=== PATIENT | female | born 1955 | race Caucasian/White ===

== ENCOUNTER 2016-11-29 20:54 | Emergency (ER) | payer MEDICARE, MEDICAID ==
[2016-11-30] MEDS ORDERED: LIDOCAINE 5% (700 MG) TRANSDERMAL ADH..PATCH TP ONE (00:45)
[2016-11-30] MEDS ORDERED: ACETAMINOPHEN 325 MG TABLET PO ONE (00:45)
--- NOTE | 2016-11-30 01:22 | ER Document Report ---
ED General - General Chief Complaint: Back Pain Stated Complaint: FLANK PAIN Time Seen by Provider: 11/30/16 00:06 Notes: Patient is a 61-year-old female with a past medical history of hypertension, diabetes, chronic right leg and back pain who presents with 3 weeks of constant right low back pain. States that the pain as a constant, throbbing, aching pain to the right low back. Worsened by movement and walking. She has been taking hydrocodone with acetaminophen with moderate relief of her pain. She has been to an urgent care regarding this concern was diagnosed with possible sciatica. She denies any urinary retention. No bowel incontinence. Patient states she has urinary incontinence at baseline and that this is unchanged today. She denies any difficulty with ambulating, focal weakness or numbness. No fever or constitutional symptoms. Nothing is new or different regarding her pain today that prompted her come to the emergency department other than that she has run out of pain medications. TRAVEL OUTSIDE OF THE [place] IN LAST 30 DAYS: No - Related Data Allergies/Adverse Reactions: morphine Allergy (Mild, Verified 11/29/16 21:09) Past Medical History - General Information source: Patient - Social History Smoking Status: Never Smoker Frequency of alcohol use: None Drug Abuse: None Lives with: Family Family History: Reviewed & Not Pertinent - Past Medical History Cardiac Medical History: Reports: Hx Hypertension Endocrine Medical History: Reports: Hx Diabetes Mellitus Type 2 Renal/ Medical History: Denies: Hx Peritoneal Dialysis Psychiatric Medical History: Reports: Hx Anxiety, Hx Depression Infectious Medical History: Reports: Hx C-Diff Past Surgical History: Reports: Hx Appendectomy, Hx Hysterectomy - Immunizations Hx Diphtheria, Pertussis, Tetanus Vaccination: Yes Review of Systems - Review of Systems Notes: Constitutional: Negative for fever. HENT: Negative for sore throat. Eyes: Negative for visual changes. Cardiovascular: Negative for chest pain. Respiratory: Negative for shortness of breath. Gastrointestinal: Negative for abdominal pain, vomiting or diarrhea. Genitourinary: Negative for dysuria. Musculoskeletal: Positive for back pain. Skin: Negative for rash. Neurological: Negative for headaches, weakness or numbness. 10 point ROS negative except as marked above and in HPI. Physical Exam - Vital signs Interpretation: Hypertensive Notes: PHYSICAL EXAMINATION: GENERAL: Well-appearing, well-nourished and in no acute distress. HEAD: Atraumatic, normocephalic. EYES: Pupils equal round and reactive to light, extraocular movements intact, sclera anicteric, conjunctiva are normal. ENT: nares patent, oropharynx clear without exudates. Moist mucous membranes. NECK: Normal range of motion, supple without lymphadenopathy LUNGS: Breath sounds clear to auscultation bilaterally and equal. No wheezes rales or rhonchi. HEART: Regular rate and rhythm without murmurs ABDOMEN: Soft, nontender, normoactive bowel sounds. No guarding, no rebound. No masses appreciated. Back: No midline spinal tenderness, step-offs or deformities. There is pain on palpation of the right parathoracic and lumbar spinal muscles. EXTREMITIES: Normal range of motion, no pitting or edema. No cyanosis. NEUROLOGICAL: 5 out of 5 strength both distally and proximally bilateral lower extremities. 2+ patellar reflexes bilaterally. No clonus. Sensation grossly intact in the bilateral lower extremities. Patient is able to ambulate without difficulty. PSYCH: Normal mood, normal affect. SKIN: Warm, Dry, normal turgor, no rashes or lesions noted. Course - Re-evaluation Re-evalutation: 11/30/16 01:22 Presentation of a well appearing patient complaining of acute on chronic back pain. No rapid progression of symptoms, systemic symptoms including fevers, chills, weight loss, history of recent bacterial infection, bilateral symptoms, numbness, weakness, difficulty walking, urinary retention or bowel incontinence , personal history of cancer, immunosuppression, diabetes, known AAA, or history of IV drug use. Exam is without point tenderness over vertebral bodies , pulsatile abdominal mass, and patient has symmetric and intact lower extremity strength, sensation, and reflexes without clonus. 2+ symmetric medial malleolar and dorsalis pedis pulses Based on history and physical, I have a very low suspicion of a concerning etiology of pain including epidural compression syndrome, spinal infection, transverse myelitis, malignancy, abdominal aortic aneurysm, renal colic, acute lower extremity claudication, neurogenic claudication, ankylosing spondylitis, or other intra-abdominal process. Due to absence of concerning risk factors in history and physical as well as absence of rapidly progressive, severe, or bilateral symptoms, will defer imaging at this point. Plan to manage conservatively with outpatient analgesia, analgesia, and physical therapy. - Acetaminophen 650 q 4 + ibuprofen 600 q 6 - Continue normal daily activities as tolerated by pain - Provide with standard musculoskeletal back pain exercise instructions - Instruct to follow up with primary care provider if symptoms not improving - Provide careful return precautions and concerning symptoms to watch for. - Laboratory Laboratory results interpreted by me: 11/30/16 00:53 Urine Urobilinogen 2.0 H Ur Leukocyte Esterase TRACE H Discharge - Discharge Clinical Impression: Low back pain Qualifiers: Chronicity: acute Back pain laterality: right Sciatica presence: with sciatica Sciatica laterality: sciatica of right side Qualified Code(s): M54.41 - Lumbago with sciatica, right side Condition: Good Disposition: HOME, SELF-CARE Additional Instructions: You have been seen in the Emergency Department (ED) today for back pain. Your workup and exam have not shown any acute abnormalities and you are likely suffering from muscle strain or possible problems with your discs, but there is no treatment that will fix your symptoms at this time. Please take the ketorolac that has been prescribed as directed. You should also purchase a local lidocaine cream such as "aspercreme with lidocaine" and use per bottle instructions to the affected area. Apply heat to the area as often as you are able. Continue to keep active and avoid prolonged periods of bed rest. Please follow up with your doctor as soon as possible regarding today's ED visit and your back pain. Return to the ED for worsening back pain, fever, weakness or numbness of either leg, or if you develop either (1) an inability to urinate or have bowel movements, or (2) loss of your ability to control your bathroom functions (if you start having "accidents"), or if you develop other new symptoms that concern you.concern you. Prescriptions: Ketorolac Tromethamine [Toradol 10 mg Tablet] 10 mg PO Q6HP PRN #30 tablet PRN Reason:
[2016-11-30 01:29] LABS: AMORPHOUS SEDIMENT,URINE TRACE /HPF; APPEARANCE,URINE SLIGHTLY-CLOUDY; BILIRUBIN,URINE NEGATIVE (NEGATIVE); GLUCOSE, URINE NEGATIVE (NEGATIVE); KETONES,URINE NEGATIVE (NEGATIVE); LEUKOCYTE ESTERASE,URINE TRACE (NEGATIVE); NITRITE,URINE NEGATIVE (NEGATIVE); PROTEIN,URINE NEGATIVE (NEGATIVE); URINE SPECIFIC GRAVITY 1.027
[2016-11-30 02:18] VITALS: BP 154/74
== END 2016-11-30 01:50 | disposition home or self-care (01) ==
LOC: ER 20:54
DX: M54.41 Lumbago with sciatica, right side (principal); M54.5 Low back pain; M54.9 Dorsalgia, unspecified; M79.604 Pain in right leg; G89.29 Other chronic pain; R10.9 Unspecified abdominal pain; I10 Essential (primary) hypertension; E11.9 Type 2 diabetes mellitus without complications
CPT/HCPCS: 99283; 81001; A9270

== ENCOUNTER 2016-12-06 15:34 | Emergency (ER) | payer MEDICAID, MEDICARE ==
[2016-12-06] MEDS ORDERED: ONDANSETRON 4 MG TAB.RAPDIS SL ONE (16:37)
[2016-12-06] MEDS ORDERED: HYDROCODONE/ACETAMINOPHEN 5-325 MG TABLET PO ONE (16:37)
--- NOTE | 2016-12-06 16:38 | ER Document Report ---
ED Medical Screen (RME) - General Chief Complaint: Flank Pain Stated Complaint: PAIN IN RIGHT SIDE Time Seen by Provider: 12/06/16 16:37 Mode of Arrival: Wheelchair Information source: Patient TRAVEL OUTSIDE OF THE U.S. IN LAST 30 DAYS: No - HPI Patient complains to provider of: Right flank pain, dysuria Notes: 12/06/16 16:38 Patient is a 61-year-old female presenting to the emergency room complaining of one-week history of right flank pain with dysuria and urinary frequency, she also had 3 episodes of vomiting today - Related Data Allergies/Adverse Reactions: morphine Allergy (Mild, Verified 11/29/16 21:09) Past Medical History - Past Medical History Cardiac Medical History: Reports: Hx Hypertension Endocrine Medical History: Reports: Hx Diabetes Mellitus Type 2 Renal/ Medical History: Denies: Hx Peritoneal Dialysis Psychiatric Medical History: Reports: Hx Anxiety, Hx Depression Infectious Medical History: Reports: Hx C-Diff Past Surgical History: Reports: Hx Appendectomy, Hx Hysterectomy - Immunizations Hx Diphtheria, Pertussis, Tetanus Vaccination: Yes Physical Exam - Vital signs Vitals: Temp Pulse Resp BP Pulse Ox 98.4 F 98 16 156/104 H 93 12/06/16 16:04 12/06/16 16:04 12/06/16 16:04 12/06/16 16:04 12/06/16 16:04 Course - Vital Signs Vital signs: Temp Pulse Resp BP Pulse Ox 98.4 F 98 16 156/104 H 93 12/06/16 16:04 12/06/16 16:04 12/06/16 16:04 12/06/16 16:04 12/06/16 16:04
[2016-12-06 17:44] LABS: ABSOLUTE BASOPHILS # (AUTO) 0.1 10^3/uL (0.0-0.2); ABSOLUTE EOSINOPHILS # (AUTO) 0.1 10^3/uL (0.0-0.6); ABSOLUTE LYMPHOCYTES (AUTO) 1.3 10^3/uL (0.5-4.7); ABSOLUTE MONOCYTES (AUTO) 0.5 10^3/uL (0.1-1.4); ABSOLUTE NEUT (AUTO) 7.1 10^3/uL (1.7-8.2); BASOPHILS % (AUTO) 0.9 % (0-2); EOSINOPHILS % (AUTO) 0.6 % (0-6); HEMOGLOBIN 19.4 g/dL (12.0-15.5); HGB HCT DIFFERENCE 1.5; LYMPHOCYTES % (AUTO) 13.9 % (13-45); MEAN CORPUSCULAR HEMOGLOBIN 29.1 pg (27.0-33.4); MEAN CORPUSCULAR HGB CONC 34.3 g/dL (32.0-36.0); MEAN CORPUSCULAR VOLUME 85 fl (80-97); MONOCYTES % (AUTO) 5.9 % (3-13); RED BLOOD COUNT 6.68 10^6/uL (3.72-5.28); RED CELL DISTRIBUTION WIDTH 14.9 % (11.5-14.0); SEGMENTED NEUTROPHILS % (AUTO) 78.7 % (42-78); WHITE BLOOD COUNT 9.1 10^3/uL (4.0-10.5)
[2016-12-06 17:45] LABS: HEMATOCRIT 56.7 % (36.0-47.0)
[2016-12-06 17:54] LABS: APPEARANCE,URINE SLIGHTLY-CLOUDY; BILIRUBIN,URINE NEGATIVE (NEGATIVE); GLUCOSE, URINE NEGATIVE (NEGATIVE); KETONES,URINE 20 mg/dL (NEGATIVE); LEUKOCYTE ESTERASE,URINE NEGATIVE (NEGATIVE); NITRITE,URINE NEGATIVE (NEGATIVE); PROTEIN,URINE NEGATIVE (NEGATIVE); URINE SPECIFIC GRAVITY 1.012; UROBILINOGEN,URINE NEGATIVE mg/dL (<2.0)
[2016-12-06 18:04] LABS: ALANINE AMINOTRANSFERASE 23 U/L (9-52); ALBUMIN 4.4 g/dL (3.5-5.0); ALKALINE PHOSPHATASE 111 U/L (38-126); ANION GAP 15 (5-19); ASPARTATE AMINO TRANSFERASE 21 U/L (14-36); BILIRUBIN,DIRECT 0.5 mg/dL (0.0-0.4); BILIRUBIN,TOTAL 1.1 mg/dL (0.2-1.3); BLOOD UREA NITROGEN 11 mg/dL (7-20); CALCIUM 9.9 mg/dL (8.4-10.2); CARBON DIOXIDE 26 mmol/L (22-30); CHLORIDE 99 mmol/L (98-107); CREATININE RESULT 0.73 mg/dL (0.52-1.25); GLUCOSE 170 mg/dL (75-110); LIPASE 68.1 U/L (23-300); POTASSIUM 3.8 mmol/L (3.6-5.0); SODIUM 139.6 mmol/L (137-145); TOTAL PROTEIN 7.6 g/dL (6.3-8.2)
[2016-12-06] MEDS ORDERED: PHENAZOPYRIDINE HCL 200 MG TABLET PO ONE (18:48)
--- NOTE | 2016-12-06 18:50 | ER Document Report ---
ED GI/ - General Mode of Arrival: Wheelchair Information source: Patient TRAVEL OUTSIDE OF THE [place] IN LAST 30 DAYS: No - HPI Patient complains to provider of: Abdominal pain, Dysuria, Flank pain, Vaginal pain, Vomiting <MARISSA LOVE - Last Filed: 12/06/16 20:25> <CECILIAFABIANGIE - Last Filed: 12/06/16 23:42> - General Chief Complaint: Flank Pain Stated Complaint: PAIN IN RIGHT SIDE Time Seen by Provider: 12/06/16 16:37 Notes: Patient is a 61 year old female presenting to the emergency department for right flank pain and dysuria. Patient states she has had pain in her right side x1 week. Patient states she had dysuria and urinary frequency x2 days. Patient describes her dysuria as burning and pressure in her urethra. Patient also had some vomiting x3 today and has also had a lack of appetite and nausea. Patient states she has been dizzy today and felt like she was going to pass out; she states this is probably due to her not eating. Patient did have an episode of syncope this morning around 3:00 am and she states her son in law had to pick her up off the floor. Patient was getting up to go to the bathroom when she fell. Patient states she does not remember falling but she thinks she was down for about 4-5 minutes. Patient does not have a local PCP since she recently moved back to this area. Patient has a history of diabetes mellitus, hypertension, anxiety and depression. Patient has had a hysterectomy and an appendectomy. (MARISSA LOVE) - Related Data Allergies/Adverse Reactions: morphine Allergy (Mild, Verified 11/29/16 21:09) Past Medical History - General Information source: Patient - Social History Smoking Status: Current Every Day Smoker Cigarette use (# per day): Yes Chew tobacco use (# tins/day): No Smoking Education Provided: Yes - >5 minutes Frequency of alcohol use: None Drug Abuse: None Family History: None Patient has suicidal ideation: No Patient has homicidal ideation: No - Past Medical History Cardiac Medical History: Reports: Hx Hypertension Endocrine Medical History: Reports: Hx Diabetes Mellitus Type 2 Psychiatric Medical History: Reports: Hx Anxiety, Hx Depression Infectious Medical History: Reports: Hx C-Diff Past Surgical History: Reports: Hx Appendectomy, Hx Hysterectomy, Hx Orthopedic Surgery - right knee - Immunizations Hx Diphtheria, Pertussis, Tetanus Vaccination: Yes <MARISSA LOVE - Last Filed: 12/06/16 20:25> Review of Systems - Review of Systems Constitutional: No symptoms reported. denies: Fever EENT: No symptoms reported Cardiovascular: No symptoms reported Respiratory: No symptoms reported Gastrointestinal: See HPI, Nausea, Vomiting, Poor appetite. denies: Diarrhea Genitourinary: See HPI, Burning, Dysuria, Frequency, Flank pain. denies: Incontinence Female Genitourinary: See HPI, Other Musculoskeletal: See HPI, Back pain Skin: No symptoms reported Hematologic/Lymphatic: No symptoms reported Neurological/Psychological: Numbness -: Yes All other systems reviewed and negative <MARISSA LOVE - Last Filed: 12/06/16 20:25> Physical Exam - Vital signs Interpretation: Hypertensive <MARISSA LOVE - Last Filed: 12/06/16 20:25> <ANGIE VIEIRA - Last Filed: 12/06/16 23:42> - Vital signs Vitals: Temp Pulse Resp BP Pulse Ox 98.4 F 98 16 156/104 H 93 12/06/16 16:04 12/06/16 16:04 12/06/16 16:04 12/06/16 16:04 12/06/16 16:04 - Notes Notes: GENERAL: Alert, interacts well. Appears uncomfortable. Mild distress. HEAD: Normocephalic, atraumatic. EYES: Pupils equal, round, and reactive to light. Extraocular movements intact. ENT: Oral mucosa moist, tongue midline. NECK: Full range of motion. Supple. Trachea midline. LUNGS: Diffuse inspiratory rhonchi and expiratory wheezing in the left lower lobe, both are relieved with cough. No respiratory distress. HEART: Regular rate and rhythm. No murmurs, gallops, or rubs. ABDOMEN: Right lateral abdominal tenderness with palpation. Non-distended. Bowel sounds present in all 4 quadrants. GENITOURINARY: Left and right adnexal tenderness to palpation, pain is exacerbated with movement. EXTREMITIES: Moves all 4 extremities spontaneously. No edema. No cyanosis. BACK: No CVA tenderness to percussion. No midline bony tenderness with palpation. Left patellar DTR 2+, right patellar DTR not able to test due to post surgical changes and stiffness. No saddle anesthesia. 5/5 muscle strength to the lower extremities. NEUROLOGICAL: Alert and oriented x3. Normal speech. PSYCH: Normal affect, normal mood. SKIN: Warm, dry, normal turgor. No rashes or lesions noted. (MARISSA LOVE) Course - Laboratory Result Diagrams: 12/06/16 17:20 12/06/16 17:20 <MARISSA LOVE - Last Filed: 12/06/16 20:25> - Laboratory Result Diagrams: 12/06/16 17:20 12/06/16 17:20 <ANGIE VIEIRA - Last Filed: 12/06/16 23:42> - Re-evaluation Re-evalutation: 12/06/16 22:12 CBC shows hemoconcentration, no leukocytosis, CMP shows slightly elevated glucose at 170, shows 20 ketones but no blood and no true signs of infection, wet prep shows 3+ bacteria, no trichomonas, no yeast, gonorrhea and chlamydia are negative, CT scan of the abdomen and pelvis shows mild early uncomplicated diverticulitis. This was treated orally with Augmentin, no indication for IV antibiotics. Discharged home. (ANGIE VIEIRA) - Vital Signs Vital signs: Temp Pulse Resp BP Pulse Ox 98.2 F 59 L 16 169/55 H 93 12/06/16 22:22 12/06/16 22:22 12/06/16 16:04 12/06/16 22:22 12/06/16 16:04 - Laboratory Laboratory results interpreted by me: 12/06/16 12/06/16 12/06/16 17:20 17:20 17:20 RBC 6.68 H Hgb 19.4 H Hct 56.7 H RDW 14.9 H Seg Neutrophils % 78.7 H Glucose 170 H Direct Bilirubin 0.5 H Urine Ketones 20 H Discharge <MARISSA LOVE - Last Filed: 12/06/16 20:25> <ANGIE VIEIRA - Last Filed: 12/06/16 23:42> - Discharge Clinical Impression: Tobacco abuse, Tobacco abuse counseling Diverticulitis Qualifiers: Diverticulitis site: large intestine Diverticulitis bleeding: without bleeding Diverticulitis complication: without perforation or abscess Qualified Code(s): K57.32 - Diverticulitis of large intestine without perforation or abscess without bleeding Hypertension Qualifiers: Hypertension type: essential hypertension Qualified Code(s): I10 - Essential ( primary) hypertension Condition: Stable Disposition: HOME, SELF-CARE Instructions: Diverticulitis ([facility]) Prescriptions: Amox Tr/Potassium Clavulanate [Augmentin 875-125 Tablet] 1 tab PO BID 10 Days tablet Referrals: MUSHTAQ GARCIA MD [ACTIVE STAFF] - Follow up in 3-5 days Scribe Attestation: 12/06/16 23:42 I personally performed the services described in the documentation, reviewed and edited the documentation which was dictated to the scribe in my presence, and it accurately records my words and actions. (ANGIE VIEIRA) Scribe Documentation - Scribe Written by Gisela:: Gisela John 12/06/20161951 acting as scribe for :: Michelet <MARISSA LOVE - Last Filed: 12/06/16 20:25>
[2016-12-06 21:01] LABS: CHLAM PCR NOT DETECTED (NOT DETECT)
--- NOTE | 2016-12-06 21:10 | RADIOLOGY REPORT (SQ) ---
EXAM DESCRIPTION: CT ABD/PELVIS WITH IV ONLY COMPLETED DATE/TIME: 12/06/2016 8:52 pm REASON FOR STUDY: B/L lower abd TTP, nausea COMPARISON: 12/07/2015 TECHNIQUE: CT scan of the abdomen and pelvis performed using helical scanning technique with dynamic intravenous contrast injection. No oral contrast. Images reviewed with lung, soft tissue, and bone windows. Reconstructed coronal and sagittal MPR images reviewed. Delayed images for evaluation of the urinary system also acquired. All images stored on PACS. All CT scanners at this facility use dose modulation, iterative reconstruction, and/or weight based d osing when appropriate to reduce radiation dose to as low as reasonably achievable (ALARA). [facility]: Dose Right [facility]: CareDose [facility]: Dose Right [facility]: Teradose 4D [facility]: Spherical Systems CONTRAST TYPE AND DOSE: contrast/concentration: Isovue 370.00 mg/ml; Total Contrast Delivered: 100.0 ml; Total Saline Delivered: 64.9 ml RENAL FUNCTION: BUN 11; creatinine 0.73 RADIATION DOSE: Up-to-date CT equipment and radiation dose reduction techniques were employed. CTDIv ol: 19.6 - 21.1 mGy. DLP: 1981 mGy-cm.. LIMITATIONS: None. FINDINGS: LOWER CHEST: Stable lingular scarring. No significant findings. No nodules or infiltrates . LIVER: Normal size. No masses. No dilated ducts. SPLEEN: Normal size. No focal lesions. PANCREAS: No masses. No significant calcifications. No adjacent inflammation or peripancreatic fluid collections. Pancreatic duct not dilated. GALLBLADDER: Surgically absent. ADRENAL GLANDS: Stable left adrenal nodule. RIGHT KIDNEY AND URETER: No solid masses. No significant calcifications. No hydronephrosis or hyd roureter. LEFT KIDNEY AND URETER: No solid masses. No significant calcifications. No hydronephrosis or hydr oureter. AORTA AND VESSELS: No aneurysm. No dissection. Renal arteries, SMA, celiac without stenosis. RETROPERITONEUM: No retroperitoneal adenopathy, hemorrhage or masses. BOWEL AND PERITONEAL CAVITY: Re- demonstration of diverticular disease. Subtle mesenteric fat strand ing seen adjacent to the sigmoid colon. No focal fluid collection or pneumoperitoneum is demonstrate d. APPENDIX: Surgically absent. PELVIS: No mass. No free fluid. Normal bladder. ABDOMINAL WALL: No masses. No hernias. BONES: No significant or acute findings. OTHER: No other significant finding. IMPRESSION: Given patient-reported lower abdominal pain, subtle inflammatory changes seen adjacent t o the sigmoid colon are favored to represent early uncomplicated diverticulitis. TECHNICAL DOCUMENTATION: JOB ID: [id number] Quality ID # [id number]: Final reports with documentation of one or more dose reduction techniques (e.g., Au tomated exposure control, adjustment of the mA and/or kV according to patient size, use of iterative reconstruction technique) 2010 [employer]- All Rights Reserved
[2016-12-06] MEDS ORDERED: AMOXICILLIN TR/POT CLAVULANATE 500-125 MG TAB PO ONE (21:42)
[2016-12-06 22:26] VITALS: BP 169/55
== END 2016-12-06 22:25 | disposition home or self-care (01) ==
LOC: ER 15:34
DX: K57.32 Diverticulitis of large intestine without perforation or abscess without bleeding (principal); I10 Essential (primary) hypertension; R10.9 Unspecified abdominal pain; R30.0 Dysuria; R35.0 Frequency of micturition; R42 Dizziness and giddiness; E11.9 Type 2 diabetes mellitus without complications; F32.9 Major depressive disorder, single episode, unspecified; F17.210 Nicotine dependence, cigarettes, uncomplicated; W19.XXXA Unspecified fall, initial encounter
CPT/HCPCS: 99284; 36415; 87086; 87210; 83690; 85025; 80053; 81001; 87491; 87591; 74177; A9270 ×4; J3490; S0119

== ENCOUNTER 2017-01-20 14:06 | Emergency (ER) | payer MEDICARE ==
[2017-01-20 14:25] LABS: ABSOLUTE BASOPHILS # (AUTO) 0.1 10^3/uL (0.0-0.2); ABSOLUTE EOSINOPHILS # (AUTO) 0.1 10^3/uL (0.0-0.6); ABSOLUTE LYMPHOCYTES (AUTO) 1.1 10^3/uL (0.5-4.7); ABSOLUTE MONOCYTES (AUTO) 0.5 10^3/uL (0.1-1.4); ABSOLUTE NEUT (AUTO) 7.7 10^3/uL (1.7-8.2); EOSINOPHILS % (AUTO) 0.7 % (0-6); HEMATOCRIT 51.9 % (36.0-47.0); HGB HCT DIFFERENCE 2.1; LYMPHOCYTES % (AUTO) 11.9 % (13-45); MEAN CORPUSCULAR HEMOGLOBIN 29.2 pg (27.0-33.4); MEAN CORPUSCULAR HGB CONC 34.7 g/dL (32.0-36.0); MEAN CORPUSCULAR VOLUME 84 fl (80-97); MONOCYTES % (AUTO) 5.7 % (3-13); RED BLOOD COUNT 6.16 10^6/uL (3.72-5.28); SEGMENTED NEUTROPHILS % (AUTO) 80.7 % (42-78); WHITE BLOOD COUNT 9.6 10^3/uL (4.0-10.5)
[2017-01-20] MEDS ORDERED: NORMAL SALINE 1000 ML 1,000 ML IV ONE (15:09)
[2017-01-20] MEDS ORDERED: AMLODIPINE BESYLATE 10 MG TABLET PO ONE (15:09)
[2017-01-20 15:32] LABS: ALANINE AMINOTRANSFERASE 42 U/L (9-52); ALBUMIN 4.2 g/dL (3.5-5.0); ALKALINE PHOSPHATASE 92 U/L (38-126); ANION GAP 11 (5-19); ASPARTATE AMINO TRANSFERASE 21 U/L (14-36); BILIRUBIN,DIRECT 0.6 mg/dL (0.0-0.4); BLOOD UREA NITROGEN 13 mg/dL (7-20); CALCIUM 9.6 mg/dL (8.4-10.2); CARBON DIOXIDE 27 mmol/L (22-30); CHLORIDE 98 mmol/L (98-107); CREATININE RESULT 0.66 mg/dL (0.52-1.25); GLUCOSE 314 mg/dL (75-110); POTASSIUM 4.1 mmol/L (3.6-5.0); SODIUM 136.3 mmol/L (137-145)
[2017-01-20 15:32] LABS: APPEARANCE,URINE SLIGHTLY-CLOUDY; BILIRUBIN,URINE NEGATIVE (NEGATIVE); GLUCOSE, URINE >=500 mg/dL (NEGATIVE); KETONES,URINE TRACE mg/dL (NEGATIVE); LEUKOCYTE ESTERASE,URINE NEGATIVE (NEGATIVE); NITRITE,URINE NEGATIVE (NEGATIVE); PROTEIN,URINE NEGATIVE (NEGATIVE); URINE SPECIFIC GRAVITY 1.012; UROBILINOGEN,URINE NEGATIVE mg/dL (<2.0)
--- NOTE | 2017-01-20 17:12 | ER Document Report ---
ED General - General Chief Complaint: Vomiting Stated Complaint: BLOOD SUGAR/PRESSURE ISSUES Time Seen by Provider: 01/20/17 14:49 Mode of Arrival: Medic Information source: Patient TRAVEL OUTSIDE OF THE [place] IN LAST 30 DAYS: No - HPI Patient complains to provider of: Out of my meds for 3 weeks Quality of pain: No pain Associated symptoms: None Exacerbated by: Denies Similar symptoms previously: Yes Recently seen / treated by doctor: No Notes: Presents emergency department stating that she does not have her Medicaid card. She moved from [place] to [place] 1 year ago and has never received it. Out it she is unable to go get her medications. - Related Data Allergies/Adverse Reactions: morphine Adverse Reaction (Mild, Verified 12/14/16 11:36) Home Medications: Current Home Medications Bupropion HCl [Bupropion Xl] 300 mg PO QAM 01/20/17 [History] Clonazepam 0.5 mg PO BID 01/20/17 [History] Metformin HCl [Metformin HCl ER] 500 mg PO DAILY 01/20/17 [History] Past Medical History - General Information source: Patient - Social History Smoking Status: Former Smoker Chew tobacco use (# tins/day): No Frequency of alcohol use: None Drug Abuse: None Family History: None, Reviewed & Not Pertinent Patient has suicidal ideation: No Patient has homicidal ideation: No - Past Medical History Cardiac Medical History: Reports: Hx Hypertension Pulmonary Medical History: Reports: Hx COPD Endocrine Medical History: Reports: Hx Diabetes Mellitus Type 2 Renal/ Medical History: Reports: None. Denies: Hx Peritoneal Dialysis Malignancy Medical History: Reports: None GI Medical History: Reports: None Musculoskeltal Medical History: Reports None Psychiatric Medical History: Reports: Hx Anxiety, Hx Depression Infectious Medical History: Reports: Hx C-Diff Past Surgical History: Reports: Hx Appendectomy, Hx Cholecystectomy, Hx Hysterectomy, Hx Orthopedic Surgery - right knee - Immunizations Immunizations up to date: No Hx Diphtheria, Pertussis, Tetanus Vaccination: Yes History of Influenza Vaccine for 11/2016 - 04/2017 Season: No Review of Systems - Review of Systems Constitutional: No symptoms reported EENT: Other - Pressure behind her eyes. denies: Eye discharge, Blurred vision, Double vision Cardiovascular: No symptoms reported Respiratory: No symptoms reported Gastrointestinal: No symptoms reported Genitourinary: No symptoms reported Female Genitourinary: No symptoms reported Musculoskeletal: No symptoms reported Skin: No symptoms reported Hematologic/Lymphatic: No symptoms reported Neurological/Psychological: No symptoms reported Physical Exam - Vital signs Vitals: Resp Pulse Ox 20 95 01/20/17 14:16 01/20/17 14:16 Interpretation: Hypertensive - Notes Notes: PHYSICAL EXAMINATION: GENERAL: Well-appearing, well-nourished and in no acute distress. HEAD: Atraumatic, normocephalic. EYES: Pupils equal round and reactive to light, extraocular movements intact, conjunctiva are normal. ENT: Nares patent, oropharynx clear without exudates. Moist mucous membranes. NECK: Normal range of motion, supple without lymphadenopathy LUNGS: Breath sounds clear to auscultation bilaterally and equal. No wheezes rales or rhonchi. HEART: Regular rate and rhythm ABDOMEN: Soft, nontender, nondistended abdomen. No guarding, no rebound. No masses appreciated. Female : deferred Musculoskeletal: Normal range of motion, no pitting or edema. No cyanosis. NEUROLOGICAL: Cranial nerves grossly intact. Normal speech, normal gait. Normal sensory, motor exams PSYCH: Normal mood, normal affect. SKIN: Warm, Dry, normal turgor, no rashes or lesions noted. Course - Re-evaluation Re-evalutation: 01/20/17 23:09 Destin the disability case manager went and talked to the patient multiple times, on 1 of those occasions I did go in with Destin. She did have prescriptions filled in January for metformin as well as Octra. She states [facility] and she was discharged with prescriptions and did have those filled. Have a clinic that she goes to we encouraged her to return there. Also got her Medicaid number as well as information on her card and gave it to her so she should not have any difficulty filling her prescriptions. Sugar came down nicely with IV fluids and her blood pressure came down with Norvasc. Discharged home in stable condition with prescriptions for metformin as well as Norvasc. - Vital Signs Vital signs: Temp Pulse Resp BP Pulse Ox 24 H 157/84 H 93 01/20/17 17:01 01/20/17 17:01 01/20/17 17:01 - Laboratory Result Diagrams: 01/20/17 14:15 01/20/17 15:01 Laboratory results interpreted by me: 01/20/17 01/20/17 01/20/17 14:15 15:01 15:15 RBC 6.16 H Hgb 18.0 H Hct 51.9 H Seg Neutrophils % 80.7 H Lymphocytes % 11.9 L Sodium 136.3 L Glucose 314 H Direct Bilirubin 0.6 H Urine Glucose (UA) >=500 H Urine Ketones TRACE H Discharge - Discharge Clinical Impression: Noncompliance w/medication treatment due to intermit use of medication, Uncontrolled diabetes mellitus, High blood pressure Condition: Stable Disposition: HOME, SELF-CARE Additional Instructions: Please call the [facility] where you have been cared for in the past for follow-up appointment. Please call tomorrow. Your Medicare card information and number have been given to see should not have a problem getting her prescriptions filled. He is taking her medications as prescribed it is very important to control your blood sugar as well as her blood pressure. Prescriptions: Amlodipine Besylate [Norvasc 10 mg Tablet] 10 mg PO DAILY #30 tablet Metformin HCl [Glucophage 500 mg Tablet] 500 mg PO BID #60 tablet
[2017-01-20 17:26] VITALS: BP 157/84
== END 2017-01-20 17:01 | disposition home or self-care (01) ==
LOC: ER 14:06
DX: I10 Essential (primary) hypertension (principal); E11.9 Type 2 diabetes mellitus without complications; Z91.14 Patient's other noncompliance with medication regimen; Z87.891 Personal history of nicotine dependence; R11.10 Vomiting, unspecified; J44.9 Chronic obstructive pulmonary disease, unspecified; Z90.49 Acquired absence of other specified parts of digestive tract; Z90.710 Acquired absence of both cervix and uterus
CPT/HCPCS: 99284; 96360; 36415; 82962; 85025; 80053; 81001; J7030; A9270

== ENCOUNTER 2017-07-01 09:47 | Inpatient (IN) | payer MEDICARE ==
[2017-07-01] MEDS ORDERED: NORMAL SALINE 1000 ML 1,000 ML IV ONE ×2 (10:00→14:27)
[2017-07-01] MEDS ORDERED: NALOXONE HCL INJ 2 MG/2 ML DISP.SYRIN ONE (10:06)
--- NOTE | 2017-07-01 10:12 | ER Document Report ---
ED General - General Stated Complaint: ALTERED MENTAL STATUS Time Seen by Provider: 07/01/17 09:59 Mode of Arrival: Medic Information source: Patient, Emergency Med Personnel, [facility] Records Notes: Patient is a 62-year-old female with past medical history including diabetes and major depression who presents today with EMS. EMS states that the family called secondary to the patient having vomiting with some decreased mental status. Patient supposedly has been "unwell" according to EMS for the last 2-3 days with some vomiting. Family were very poor historians. Patient supposedly has not been taking her medications in greater than 3 3 weeks. This includes diabetic medications, blood pressure medications, including possibly insulin according to EMS. Patient is able to give only limited history. She does know where she is. She is slightly somnolent but easily arousable. She denies any pain. She does state she is nauseous. Patient states she has drank alcohol and has used heroin. She denies any cocaine abuse. TRAVEL OUTSIDE OF THE [place] IN LAST 30 DAYS: No - HPI Onset: Other - See above Onset/Duration: Gradual Quality of pain: Other - See above Severity: Moderate Pain Level: 3 Associated symptoms: Other - See above Exacerbated by: Denies Relieved by: Denies Similar symptoms previously: Yes Recently seen / treated by doctor: Yes - Related Data Allergies/Adverse Reactions: latex Allergy (Verified 07/01/17 13:43) morphine Adverse Reaction (Mild, Verified 07/01/17 13:43) Past Medical History - Social History Smoking Status: Unknown if Ever Smoked Cigarette use (# per day): No Chew tobacco use (# tins/day): No Smoking Education Provided: No Frequency of alcohol use: Unknown Drug Abuse: Other - See above Family History: None, Reviewed & Not Pertinent - Past Medical History Cardiac Medical History: Reports: Hx Hypertension Pulmonary Medical History: Reports: Hx COPD Endocrine Medical History: Reports: Hx Diabetes Mellitus Type 2 Renal/ Medical History: Denies: Hx Peritoneal Dialysis Psychiatric Medical History: Reports: Hx Anxiety, Hx Depression Infectious Medical History: Reports: Hx C-Diff Past Surgical History: Reports: Hx Appendectomy, Hx Cholecystectomy, Hx Hysterectomy, Hx Orthopedic Surgery - right knee - Immunizations Immunizations up to date: No Hx Diphtheria, Pertussis, Tetanus Vaccination: Yes Review of Systems - Review of Systems -: Yes ROS unobtainable due to patient's medical condition Physical Exam - Vital signs Vitals: Resp 12 07/01/17 09:51 Notes: Reviewed vital signs and nursing note as charted by RN. CONSTITUTIONAL: Somnolent but easily arousable HEAD: Normocephalic; atraumatic EYES: PERRL; sclerae non-icteric ENT: Normal nose; no rhinorrhea; moist mucous membranes; pharynx without lesions noted NECK: Supple without meningismus; non-tender; no cervical lymphadenopathy, no masses CARD: Regular rate and rhythm; no murmurs, no clicks, no rubs, no gallops; symmetric distal pulses RESP: Normal chest excursion without splinting or tachypnea; breath sounds clear and equal bilaterally; no wheezes, no rhonchi, no rales ABD/GI: Normal bowel sounds; non-distended; soft, non-tender; no palpable organomegaly or masses BACK: The back appears normal and is non-tender to palpation EXT: Normal ROM in all joints; non-tender to palpation; no cyanosis, no effusions, no edema SKIN: Normal color for age and race; warm; dry; good turgor; capillary refill < 2 seconds; no acute lesions noted NEURO: CN II through XII are intact. Moves all extremities equally; Motor and sensory function intact Course - Re-evaluation Re-evalutation: 07/01/17 10:11 Given the history and physical examination, we will obtain labs, fluids, EKG, place the patient on the monitor and obtain an x-ray three-way of the abdomen as well as a CT scan of the head. Given the patient's report of heroin abuse, I will provide Narcan. Accu-Chek is recorded. We will also assess for possible DKA. 07/01/17 10:12 I have reviewed the patient's medical chart and see medication noncompliance in the past as well as suicidal ideations. Given the patient also has a history of COPD, we will obtain an ABG instead of a VBG to evaluate the patient's oxygenation as well as anion gap. EKG shows a heart of 75, normal sinus rhythm, normal axis, no obvious ST elevation or depression. Flattening T waves in lead V3 07/01/17 11:29 No change in exam. Still no tenderness to palpation of the abdomen. Narcan had no effect. CT scan, x-ray, and laboratory work are pending. Patient is protecting her airway. 07/01/17 12:28 Lactic acid is 1.6. 07/01/17 13:08 Chemistry is recorded. Troponin as recorded. The patient is sitting up now and speaking moving all 4 extremities. 07/01/17 14:26 Patient is now convulsing but is still confused. Still no focal neurological deficits. No nystagmus. Pupils are equal and reactive bilaterally. Patient is afebrile. I am not able to find any patches or other foreign bodies on the patient on repeat inspection/examination. I do not believe it is safe and otherwise no appropriate to perform a lumbar puncture at this time. I am unsure why the patient has altered mental status. Psychiatry history in the past. Patient is unable to answer questions regarding possible ingestion of drug abuse. Urine drug screen is pending. Patient still has no tenderness to palpation of the abdomen. I have attempted to call the patient's family members on the records recorded, but there was no answer. Patient will be admitted to the hospitalist for observation. - Vital Signs Vital signs: Temp Pulse Resp BP Pulse Ox 17 199/177 H 97 07/01/17 14:01 07/01/17 14:01 07/01/17 14:01 - Laboratory Result Diagrams: 07/01/17 11:40 07/01/17 11:40 Laboratory results interpreted by me: 07/01/17 07/01/17 07/01/17 10:00 11:26 11:40 WBC 11.1 H RBC 6.70 H Hgb 18.8 H Hct 55.2 H Seg Neutrophils % 91.6 H Lymphocytes % 5.7 L Monocytes % 2.5 L Absolute Neutrophils 10.2 H Glucose POC Glucose 361 H 294 H Urine Glucose (UA) Urine Ketones Urine Blood Acetaminophen 07/01/17 07/01/17 07/01/17 11:40 12:33 12:50 WBC RBC Hgb Hct Seg Neutrophils % Lymphocytes % Monocytes % Absolute Neutrophils Glucose 305 H POC Glucose 285 H Urine Glucose (UA) >=500 H Urine Ketones 80 H Urine Blood SMALL H Acetaminophen < 10 L 07/01/17 13:44 WBC RBC Hgb Hct Seg Neutrophils % Lymphocytes % Monocytes % Absolute Neutrophils Glucose POC Glucose 252 H Urine Glucose (UA) Urine Ketones Urine Blood Acetaminophen Critical Care Note - Critical Care Note Total time excluding time spent on procedures (mins): 40 Discharge - Discharge Clinical Impression: Altered mental status Qualifiers: Altered mental status type: unspecified Qualified Code(s): R41.82 - Altered mental status, unspecified Condition: Fair Disposition: ADMITTED OBSERVATION Admitting Provider: Hospitalist Unit Admitted: Telemetry
--- NOTE | 2017-07-01 11:48 | RADIOLOGY REPORT (SQ) ---
EXAM DESCRIPTION: CT HEAD WITHOUT COMPLETED DATE/TIME: 07/01/2017 10:48 am REASON FOR STUDY: 3, ams COMPARISON: None. TECHNIQUE: Axial images acquired through the brain without intravenous contrast. Images reviewed wi th bone, brain and subdural windows. Additional sagittal and coronal reconstructions were generated. Images stored on PACS. All CT scanners at this facility use dose modulation, iterative reconstruction, and/or weight based d osing when appropriate to reduce radiation dose to as low as reasonably achievable (ALARA). [facility]: Dose Right [facility]: CareDose [facility]: Dose Right [facility]: Teradose 4D [facility]: Smart [employer] RADIATION DOSE: CT Rad equipment meets quality standard of care and radiation dose reduction techniq ues were employed. CTDIvol: 53.2 mGy. DLP: 1044 mGy-cm. mGy. LIMITATIONS: None. FINDINGS: VENTRICLES: Prominent. CEREBRUM: No masses. No hemorrhage. No midline shift. Areas of low density in the white matter mos t likely due to chronic micro-vascular ischemic change. No evidence for acute infarction. CEREBELLUM: No masses. No hemorrhage. No alteration of density. No evidence for acute infarction. EXTRAAXIAL SPACES: Mild age-related involutional change. No fluid collections. No masses. ORBITS AND GLOBE: No intra- or extraconal masses. Normal contour of globe without masses. CALVARIUM: No fracture. PARANASAL SINUSES: No fluid or mucosal thickening. SOFT TISSUES: No mass or hematoma. OTHER: No other significant finding. IMPRESSION: No acute abnormality in the brain. EVIDENCE OF ACUTE STROKE: NO. TECHNICAL DOCUMENTATION: JOB ID: [id number] Quality ID # [id number]: Final reports with documentation of one or more dose reduction techniques (e.g., Au tomated exposure control, adjustment of the mA and/or kV according to patient size, use of iterative reconstruction technique) 2010 [employer]- All Rights Reserved Reading location - IP/workstation name: [email or web address]
--- NOTE | 2017-07-01 11:53 | RADIOLOGY REPORT (SQ) ---
EXAM DESCRIPTION: ACUTE ABDOMEN SERIES COMPLETED DATE/TIME: 07/01/2017 11:09 am REASON FOR STUDY: 3, vomiting COMPARISON: CT abdomen pelvis 12/06/2016 AP chest 12/14/2016, 06/16/2008 NUMBER OF VIEWS: Three views. TECHNIQUE: Frontal chest, supine abdomen and upright abdomen radiographic images acquired. LIMITATIONS: None. FINDINGS: CHEST: Lungs clear of infiltrates. No pleural effusions. No pneumothorax. Cardiac silho uette size, ramakrishna unremarkable. FREE AIR: None. No abnormal gas collections. BOWEL GAS PATTERN: Nonobstructive pattern. No dilated loops or air fluid levels. CALCIFICATIONS: Arterial vascular calcifications in the upper abdomen HARDWARE: Clips right upper quadrant post cholecystectomy. Clips right lower quadrant post appendect trice. SOFT TISSUES: No gross mass or suggestion of organomegaly. BONES: No acute fracture. No worrisome bone lesions. OTHER: No other significant finding. IMPRESSION: Nonobstructive bowel gas pattern. No acute infiltrates TECHNICAL DOCUMENTATION: JOB ID: [id number] [employer]- All Rights Reserved Reading location - IP/workstation name: [email or web address]
[2017-07-01 12:11] LABS: ABSOLUTE LYMPHOCYTES (AUTO) 0.6 10^3/uL (0.5-4.7); ABSOLUTE MONOCYTES (AUTO) 0.3 10^3/uL (0.1-1.4); ABSOLUTE NEUT (AUTO) 10.2 10^3/uL (1.7-8.2); BASOPHILS % (AUTO) 0.2 % (0-2); HEMOGLOBIN 18.8 g/dL (12.0-15.5); LYMPHOCYTES % (AUTO) 5.7 % (13-45); MEAN CORPUSCULAR HEMOGLOBIN 28.1 pg (27.0-33.4); MEAN CORPUSCULAR HGB CONC 34.1 g/dL (32.0-36.0); MEAN CORPUSCULAR VOLUME 82 fl (80-97); MONOCYTES % (AUTO) 2.5 % (3-13); PLATELET COUNT 180 10^3/uL (150-450); RED CELL DISTRIBUTION WIDTH 13.4 % (11.5-14.0); SEGMENTED NEUTROPHILS % (AUTO) 91.6 % (42-78); TOTAL CELLS COUNTED % (AUTO) 100 %; WHITE BLOOD COUNT 11.1 10^3/uL (4.0-10.5)
[2017-07-01 12:13] LABS: HEMATOCRIT 55.2 % (36.0-47.0)
[2017-07-01 12:29] LABS: ALANINE AMINOTRANSFERASE 19 U/L (9-52); ALBUMIN 4.5 g/dL (3.5-5.0); ALKALINE PHOSPHATASE 90 U/L (38-126); ANION GAP 15 (5-19); ASPARTATE AMINO TRANSFERASE 15 U/L (14-36); BILIRUBIN,DIRECT 0.4 mg/dL (0.0-0.4); BILIRUBIN,TOTAL 0.9 mg/dL (0.2-1.3); BLOOD UREA NITROGEN 15 mg/dL (7-20); CALCIUM 9.7 mg/dL (8.4-10.2); CARBON DIOXIDE 28 mmol/L (22-30); CHLORIDE 98 mmol/L (98-107); GLUCOSE 305 mg/dL (75-110); POTASSIUM 4.8 mmol/L (3.6-5.0); SODIUM 141.2 mmol/L (137-145); TOTAL PROTEIN 8.1 g/dL (6.3-8.2)
[2017-07-01 12:30] LABS: ACETAMINOPHEN < 10 ug/mL (10-30); ALCOHOL < 10 mg/dL (NONE DETECTED)
--- NOTE | 2017-07-01 13:09 | EKG REPORT ---
SEVERITY:- ABNORMAL ECG - SINUS RHYTHM NONSPECIFIC ANTERIOR ST-T CHANGES, NO CHANGE FROM 12/14/16 EKG : Confirmed by: Rey Marques MD 01-Jul-2017 13:08:39
[2017-07-01 14:10] LABS: APPEARANCE,URINE CLEAR; BILIRUBIN,URINE NEGATIVE (NEGATIVE); COLOR,URINE YELLOW; GLUCOSE, URINE >=500 mg/dL (NEGATIVE); KETONES,URINE 80 mg/dL (NEGATIVE); LEUKOCYTE ESTERASE,URINE NEGATIVE (NEGATIVE); NITRITE,URINE NEGATIVE (NEGATIVE); PROTEIN,URINE NEGATIVE (NEGATIVE); URINE SPECIFIC GRAVITY 1.023; UROBILINOGEN,URINE NEGATIVE mg/dL (<2.0)
[2017-07-01 14:34] LABS: ARTERIAL BLOOD BASE EXCESS 0.6 mmol/L; ARTERIAL BLOOD FIO2 2L; ARTERIAL BLOOD H2CO3 1.45 mmol/L (1.05-1.35); ARTERIAL BLOOD HCO3 26.8 mmol/L (20-26); ARTERIAL BLOOD O2 SATURATION 92.7 % (94-98); ARTERIAL BLOOD PCO2 48.2 mmHg (35-45); ARTERIAL BLOOD PH 7.36 (7.35-7.45); ARTERIAL BLOOD PO2 67.4 mmHg (80-100); ARTERIAL BLOOD TOTAL CO2 28.3 mmol/L (21-25)
[2017-07-01 14:38] LABS: INTERNATIONAL RATION (INR) 0.89; PROTHROMBIN TIME 12.5 SEC (11.4-15.4)
[2017-07-01 14:42] LABS: URINE AMPHETAMINES SCREEN NEGATIVE; URINE BARBITURATES SCREEN NEGATIVE; URINE BENZODIAZEPINES SCREEN NEGATIVE; URINE COCAINE SCREEN NEGATIVE; URINE MARIJUANA (THC) SCREEN NEGATIVE; URINE METHADONE SCREEN NEGATIVE; URINE PHENCYCLIDINE SCREEN NEGATIVE
[2017-07-01] MEDS ORDERED: ONDANSETRON HCL INJ/PF 4 MG/2 ML SDV IV PRN (15:23)
[2017-07-01] MEDS ORDERED: ALBUTEROL SULFATE 0.083% NEB 2.5 MG/3 ML AMPUL NEB PRN (15:23)
[2017-07-01] MEDS ORDERED: ACETAMINOPHEN 325 MG TABLET PO PRN (15:23)
[2017-07-01] MEDS ORDERED: DEXTROSE 40% GEL 15 GM TUBE PO PRN ×2 (15:34)
[2017-07-01] MEDS ORDERED: DEXTROSE 50%-WATER 25 GM/50 ML DISP.SYRIN IV PRN ×2 (15:34)
[2017-07-01] MEDS ORDERED: GLUCAGON,HUMAN RECOMB 1 MG INJ IM PRN (15:34)
--- NOTE | 2017-07-01 15:49 | PDOC H&P ---
History of Present Illness Admission Date/PCP: 07/01/17 14:53 NO LOCALMD Patient complains of: Patient presents emergency room with complaints of vomiting and decreased mental status. Patient apparently had been feeling ill for about 2-3 days with some vomiting. History of Present Illness: RODNEY GALEANA is a 62 year old female Patient presents emergency room with complaints of vomiting and decreased mental status. Patient apparently had been feeling ill for about 2-3 days with some vomiting. This information is obtained solely from the chart as patient is unable to provide any information due to her confusion. Workup done in the emergency room apparently including CT scan, ABG, EKG and other laboratory data really showed no light as to what is going on. She has had no focal neurological deficits. There is no seizures and she had been able to respond with a few words. The ED physicians feels that lumbar puncture is not indicated and a conchal as patient has no neck stiffness and she is afebrile at this point. Although her hemoglobin is elevated at 18 however this is chronic looking back at her chart and to be related to nicotine use. She is not azotemic. Her blood sugar was elevated at 305 but obviously this would not explain was going on. Ammonia level will be checked. There is some question of some possible drug use however toxicology screen is negative. She did receive Narcan on arrival to the emergency room with no change in mental status. Past Medical History Cardiac Medical History: Reports: Hypertension Pulmonary Medical History: Reports: Chronic Obstructive Pulmonary Disease (COPD) Endocrine Medical History: Reports: Diabetes Mellitus Type 2 Psychiatric Medical History: Reports: Depression Infectious Medical History: Reports: Clostridium Difficile Past Surgical History Past Surgical History: Reports: Appendectomy, Cholecystectomy, Hysterectomy, Orthopedic Surgery - right knee Social History Smoking Status: Unknown if Ever Smoked - Advance Directive Resuscitation Status: Full Code - Unable to verify Family History Family History: None Parental Family History Reviewed: No - unknown Children Family History Reviewed: Unknown Sibling(s) Family History Reviewed.: Unknown Medication/Allergy Allergies/Adverse Reactions: latex Allergy (Verified 07/01/17 13:43) morphine Adverse Reaction (Mild, Verified 07/01/17 13:43) Review of Systems ROS unobtainable: Due to mental status Physical Exam Vital Signs: Temp Pulse Resp BP Pulse Ox 98.5 F 17 135/61 H 98 07/01/17 15:10 07/01/17 15:01 07/01/17 15:01 07/01/17 15:01 General appearance: PRESENT: no acute distress, cooperative Head exam: PRESENT: atraumatic Eye exam: PRESENT: conjunctiva pink, EOMI, PERRLA. ABSENT: scleral icterus Mouth exam: PRESENT: dry mucosa Respiratory exam: ABSENT: accessory muscle use, chest wall tenderness, decreased breath sounds, rales Cardiovascular exam: PRESENT: RRR. ABSENT: diastolic murmur, rubs, systolic murmur GI/Abdominal exam: PRESENT: normal bowel sounds, soft. ABSENT: distended, guarding, mass, organolmegaly, rebound, tenderness Rectal exam: PRESENT: deferred Extremities exam: PRESENT: full ROM. ABSENT: calf tenderness, clubbing, pedal edema Musculoskeletal exam: PRESENT: full ROM Neurological exam: PRESENT: alert, awake, other - totally confused Skin exam: PRESENT: dry - icythma, generalized, Results Laboratory Results: Laboratory 07/01/17 07/01/17 07/01/17 10:00 11:26 11:40 WBC 11.1 H RBC 6.70 H Hgb 18.8 H Hct 55.2 H MCV 82 MCH 28.1 MCHC 34.1 RDW 13.4 Plt Count 180 Seg Neutrophils % 91.6 H Lymphocytes % 5.7 L Monocytes % 2.5 L Eosinophils % 0.0 Basophils % 0.2 Absolute Neutrophils 10.2 H Absolute Lymphocytes 0.6 Absolute Monocytes 0.3 Absolute Eosinophils 0.0 Absolute Basophils 0.0 PT INR Carbonic Acid HCO3/H2CO3 Ratio ABG pH ABG pCO2 ABG pO2 ABG HCO3 ABG Total CO2 ABG O2 Saturation ABG Base Excess FiO2 Sodium Potassium Chloride Carbon Dioxide Anion Gap BUN Creatinine Est GFR ( Amer) Est GFR (Non-Af Amer) Glucose POC Glucose 361 H 294 H Lactic Acid Calcium Total Bilirubin Direct Bilirubin Neonat Total Bilirubin Neonat Direct Bilirubin Neonat Indirect Bili AST ALT Alkaline Phosphatase Troponin I Total Protein Albumin Urine Color Urine Appearance Urine pH Ur Specific [place] Urine Protein Urine Glucose (UA) Urine Ketones Urine Blood Urine Nitrite Urine Bilirubin Urine Urobilinogen Ur Leukocyte Esterase Urine WBC (Auto) Urine RBC (Auto) U Hyaline Cast (Auto) Urine Ascorbic Acid Urine Opiates Screen Urine Methadone Screen Acetaminophen Ur Barbiturates Screen Ur Phencyclidine Scrn Ur Amphetamines Screen U Benzodiazepines Scrn Urine Cocaine Screen U Marijuana (THC) Screen Serum Alcohol 07/01/17 07/01/17 07/01/17 11:40 11:40 11:40 WBC RBC Hgb Hct MCV MCH MCHC RDW Plt Count Seg Neutrophils % Lymphocytes % Monocytes % Eosinophils % Basophils % Absolute Neutrophils Absolute Lymphocytes Absolute Monocytes Absolute Eosinophils Absolute Basophils PT Cancelled INR Cancelled Carbonic Acid HCO3/H2CO3 Ratio ABG pH ABG pCO2 ABG pO2 ABG HCO3 ABG Total CO2 ABG O2 Saturation ABG Base Excess FiO2 Sodium 141.2 Potassium 4.8 Chloride 98 Carbon Dioxide 28 Anion Gap 15 BUN 15 Creatinine 0.54 Est GFR ( Amer) > 60 Est GFR (Non-Af Amer) > 60 Glucose 305 H POC Glucose Lactic Acid Calcium 9.7 Total Bilirubin 0.9 Direct Bilirubin 0.4 Neonat Total Bilirubin Not Reportable Neonat Direct Bilirubin Not Reportable Neonat Indirect Bili Not Reportable AST 15 ALT 19 Alkaline Phosphatase 90 Troponin I < 0.012 Total Protein 8.1 Albumin 4.5 Urine Color Urine Appearance Urine pH Ur Specific [place] Urine Protein Urine Glucose (UA) Urine Ketones Urine Blood Urine Nitrite Urine Bilirubin Urine Urobilinogen Ur Leukocyte Esterase Urine WBC (Auto) Urine RBC (Auto) U Hyaline Cast (Auto) Urine Ascorbic Acid Urine Opiates Screen Urine Methadone Screen Acetaminophen < 10 L Ur Barbiturates Screen Ur Phencyclidine Scrn Ur Amphetamines Screen U Benzodiazepines Scrn Urine Cocaine Screen U Marijuana (THC) Screen Serum Alcohol < 10 07/01/17 07/01/17 07/01/17 11:40 12:33 12:50 WBC RBC Hgb Hct MCV MCH MCHC RDW Plt Count Seg Neutrophils % Lymphocytes % Monocytes % Eosinophils % Basophils % Absolute Neutrophils Absolute Lymphocytes Absolute Monocytes Absolute Eosinophils Absolute Basophils PT INR Carbonic Acid HCO3/H2CO3 Ratio ABG pH ABG pCO2 ABG pO2 ABG HCO3 ABG Total CO2 ABG O2 Saturation ABG Base Excess FiO2 Sodium Potassium Chloride Carbon Dioxide Anion Gap BUN Creatinine Est GFR ( Amer) Est GFR (Non-Af Amer) Glucose POC Glucose 285 H Lactic Acid 1.6 Calcium Total Bilirubin Direct Bilirubin Neonat Total Bilirubin Neonat Direct Bilirubin Neonat Indirect Bili AST ALT Alkaline Phosphatase Troponin I Total Protein Albumin Urine Color YELLOW Urine Appearance CLEAR Urine pH 5.0 Ur Specific [place] 1.023 Urine Protein NEGATIVE Urine Glucose (UA) >=500 H Urine Ketones 80 H Urine Blood SMALL H Urine Nitrite NEGATIVE Urine Bilirubin NEGATIVE Urine Urobilinogen NEGATIVE Ur Leukocyte Esterase NEGATIVE Urine WBC (Auto) 0 Urine RBC (Auto) 0 U Hyaline Cast (Auto) 1 Urine Ascorbic Acid NEGATIVE Urine Opiates Screen Urine Methadone Screen Acetaminophen Ur Barbiturates Screen Ur Phencyclidine Scrn Ur Amphetamines Screen U Benzodiazepines Scrn Urine Cocaine Screen U Marijuana (THC) Screen Serum Alcohol 07/01/17 07/01/17 07/01/17 12:50 13:30 13:44 WBC RBC Hgb Hct MCV MCH MCHC RDW Plt Count Seg Neutrophils % Lymphocytes % Monocytes % Eosinophils % Basophils % Absolute Neutrophils Absolute Lymphocytes Absolute Monocytes Absolute Eosinophils Absolute Basophils PT INR Carbonic Acid 1.45 H HCO3/H2CO3 Ratio 18:1 ABG pH 7.36 ABG pCO2 48.2 H ABG pO2 67.4 L ABG HCO3 26.8 H ABG Total CO2 28.3 H ABG O2 Saturation 92.7 L ABG Base Excess 0.6 FiO2 2L Sodium Potassium Chloride Carbon Dioxide Anion Gap BUN Creatinine Est GFR ( Amer) Est GFR (Non-Af Amer) Glucose POC Glucose 252 H Lactic Acid Calcium Total Bilirubin Direct Bilirubin Neonat Total Bilirubin Neonat Direct Bilirubin Neonat Indirect Bili AST ALT Alkaline Phosphatase Troponin I Total Protein Albumin Urine Color Urine Appearance Urine pH Ur Specific [place] Urine Protein Urine Glucose (UA) Urine Ketones Urine Blood Urine Nitrite Urine Bilirubin Urine Urobilinogen Ur Leukocyte Esterase Urine WBC (Auto) Urine RBC (Auto) U Hyaline Cast (Auto) Urine Ascorbic Acid Urine Opiates Screen NEGATIVE Urine Methadone Screen NEGATIVE Acetaminophen Ur Barbiturates Screen NEGATIVE Ur Phencyclidine Scrn NEGATIVE Ur Amphetamines Screen NEGATIVE U Benzodiazepines Scrn NEGATIVE Urine Cocaine Screen NEGATIVE U Marijuana (THC) Screen NEGATIVE Serum Alcohol 07/01/17 07/01/17 14:00 14:56 WBC RBC Hgb Hct MCV MCH MCHC RDW Plt Count Seg Neutrophils % Lymphocytes % Monocytes % Eosinophils % Basophils % Absolute Neutrophils Absolute Lymphocytes Absolute Monocytes Absolute Eosinophils Absolute Basophils PT 12.5 INR Carbonic Acid HCO3/H2CO3 Ratio ABG pH ABG pCO2 ABG pO2 ABG HCO3 ABG Total CO2 ABG O2 Saturation ABG Base Excess FiO2 Sodium Potassium Chloride Carbon Dioxide Anion Gap BUN Creatinine Est GFR ( Amer) Est GFR (Non-Af Amer) Glucose POC Glucose 269 H Lactic Acid Calcium Total Bilirubin Direct Bilirubin Neonat Total Bilirubin Neonat Direct Bilirubin Neonat Indirect Bili AST ALT Alkaline Phosphatase Troponin I Total Protein Albumin Urine Color Urine Appearance Urine pH Ur Specific [place] Urine Protein Urine Glucose (UA) Urine Ketones Urine Blood Urine Nitrite Urine Bilirubin Urine Urobilinogen Ur Leukocyte Esterase Urine WBC (Auto) Urine RBC (Auto) U Hyaline Cast (Auto) Urine Ascorbic Acid Urine Opiates Screen Urine Methadone Screen Acetaminophen Ur Barbiturates Screen Ur Phencyclidine Scrn Ur Amphetamines Screen U Benzodiazepines Scrn Urine Cocaine Screen U Marijuana (THC) Screen Serum Alcohol Impressions: Acute Abdomen Series 07/01/17 10:01 IMPRESSION: Nonobstructive bowel gas pattern. No acute infiltrates Head CT 07/01/17 10:01 IMPRESSION: No acute abnormality in the brain. EVIDENCE OF ACUTE STROKE: NO. Assessment & Plan - Diagnosis (1) Altered mental status Qualifiers: Altered mental status type: unspecified Qualified Code(s): R41.82 - Altered mental status, unspecified Is this a current diagnosis for this admission?: Yes Plan: Unclear etiology (2) Diabetes Qualifiers: Diabetes mellitus type: type 2 Is this a current diagnosis for this admission?: Yes Plan: Sliding scale (3) Dehydration Is this a current diagnosis for this admission?: Yes Plan: IVF and monitor labs - Time Time Spent: 30 to 50 Minutes Medications reviewed and adjusted accordingly: Yes Anticipated discharge: Home Within: within 72 hours - Inpatient Certification Based on my medical assessment, after consideration of the patient's comorbidities, presenting symptoms, or acuity I expect that the services needed warrant INPATIENT care.: Yes Medical Necessity: Significant Comorbidiites Make Outpatient Treatment Too Risky , Need For IV Fluids
[2017-07-01] MEDS ORDERED: ENOXAPARIN SODIUM INJ 40 MG/0.4 ML DISP.SYRIN SUBCUT ONE (16:30)
[2017-07-01] MEDS: DOCUSATE SODIUM 100 MG CAPSULE PO SCH (18:11)
[2017-07-01] MEDS: NORMAL SALINE 1000 ML 1,000 ML IV PRN (18:34)
[2017-07-02] MEDS: NORMAL SALINE 1000 ML 1,000 ML IV PRN (04:07)
[2017-07-02 07:15] LABS: ANION GAP 11 (5-19); BLOOD UREA NITROGEN 15 mg/dL (7-20); CALCIUM 9.2 mg/dL (8.4-10.2); CARBON DIOXIDE 26 mmol/L (22-30); CHLORIDE 102 mmol/L (98-107); GLUCOSE 253 mg/dL (75-110); SODIUM 138.8 mmol/L (137-145)
[2017-07-02 07:22] LABS: POTASSIUM 3.7 mmol/L (3.6-5.0)
[2017-07-02] MEDS: ENOXAPARIN SODIUM INJ 40 MG/0.4 ML DISP.SYRIN SUBCUT SCH (09:44)
[2017-07-02] MEDS: INSULIN LISPRO 100 UNIT/ML 3 ML VIAL SUBCUT PRN ×4 (09:44→21:40)
[2017-07-02] MEDS: DOCUSATE SODIUM 100 MG CAPSULE PO SCH ×2 (09:45→17:23)
--- NOTE | 2017-07-02 13:18 | RADIOLOGY REPORT (SQ) ---
EXAM DESCRIPTION: MRI HEAD COMBO COMPLETED DATE/TIME: 07/02/2017 12:04 pm REASON FOR STUDY: AMS COMPARISON: CT brain 07/01/2017 TECHNIQUE: Multiplanar imaging includes noncontrasted T1, T2, FLAIR, diffusion with ADC map and post gadolinium contrast T1 sequences. Images stored on PACS. CONTRAST TYPE AND DOSE: 15 mL Multihance. RENAL FUNCTION: Estimated GFR 49 LIMITATIONS: None. FINDINGS: ANATOMY: No developmental anomalies. Normal vascular flow voids. Pituitary fossa normal. CSF SPACES: Normal in size and contour. No hemorrhage. CEREBRUM: Diffusion-weighted images are positive for acute or subacute punctate cortical nonhemorrhag ic infarcts in the right inferior frontal parasagittal region, left anterior frontal cortex, left par ietal cortex. There is spotty increased FLAIR/ T2 signal in the deep periventricular white matter in the bifrontal and biparietal regions from chronic small vessel ischemic change. No MR evidence of intracranial hemorrhage, mass effect, or midline shift. POSTERIOR FOSSA: No signal alteration. No hemorrhage. No edema, masses, or mass effect. Internal derick tory canals, cerebellopontine angles, mastoids normal. No enhancing lesions. No abnormal enhancement post contrast. DIFFUSION IMAGING: Positive for punctate cortical nonhemorrhagic acute or subacute infarcts in the ri ght inferior frontal parasagittal cortex, left anterior frontal cortex, left parietal cortex. ORBITS: No masses. Globes normal. PARANASAL SINUSES: No fluid levels. Mucosa normal. OTHER: No other significant finding. IMPRESSION: Tiny nonhemorrhagic acute or subacute cortical infarcts in the bilateral frontal and rig ht parietal regions. EVIDENCE OF ACUTE STROKE: Yes COMMENT: Report called to Dr Donovan, hospitalist attending physician TECHNICAL DOCUMENTATION: JOB ID: [id number] [employer]- All Rights Reserved Reading location - IP/workstation name: [email or web address]
--- NOTE | 2017-07-02 13:51 | PDOC PROGRESS REPORT ---
Subjective Progress Note for:: 07/02/17 Subjective:: I seen patient resting in bed comfortably. Relatively patient is awake alert and oriented. Patient has hesitation when she responds to my questions. She was admitted yesterday for acute confusional state and nausea and vomiting of 2- [address] head is negative. This morning I requested MRI of the brain and this is reported as tiny nonhemorrhagic acute or subacute cortical infarcts in the bilateral frontal and right parietal regions. Reason For Visit: ENCEPHALOPATHY DEHYDRATION Physical Exam Vital Signs: Temp Pulse Resp BP Pulse Ox 97.6 F 64 18 146/72 H 95 07/02/17 10:57 07/02/17 11:58 07/02/17 11:58 07/02/17 10:57 07/02/17 11:58 Intake & Output 07/01/17 07/02/17 07/03/17 06:59 06:59 06:59 Intake Total 2200 275 Balance 2200 275 Weight 72.7 kg General appearance: PRESENT: no acute distress Head exam: PRESENT: atraumatic, normocephalic Respiratory exam: PRESENT: clear to auscultation radha. ABSENT: rales, rhonchi, wheezes Cardiovascular exam: PRESENT: RRR. ABSENT: diastolic murmur, rubs, systolic murmur GI/Abdominal exam: PRESENT: normal bowel sounds, soft. ABSENT: distended, guarding, mass, organolmegaly, rebound, tenderness Psychiatric exam: PRESENT: depressed Results Laboratory Results: 07/02/17 06:20 07/02/17 07/02/17 06:20 06:20 Sodium 138.8 Potassium 3.7 D Chloride 102 Carbon Dioxide 26 Anion Gap 11 BUN 15 Creatinine 0.49 L Est GFR ( Amer) > 60 Est GFR (Non-Af Amer) > 60 Glucose 253 H Calcium 9.2 Magnesium 1.8 Ammonia < 8.7 L Impressions: Acute Abdomen Series 07/01/17 10:01 IMPRESSION: Nonobstructive bowel gas pattern. No acute infiltrates Head CT 07/01/17 10:01 IMPRESSION: No acute abnormality in the brain. EVIDENCE OF ACUTE STROKE: NO. Head MRI 07/02/17 00:00 IMPRESSION: Tiny nonhemorrhagic acute or subacute cortical infarcts in the bilateral frontal and right parietal regions. EVIDENCE OF ACUTE STROKE: Yes Assessment & Plan - Diagnosis (1) Acute ischemic stroke Is this a current diagnosis for this admission?: Yes Plan: I will start the patient on high intensity statin and aspirin. (2) Hypertension Qualifiers: Hypertension type: essential hypertension Qualified Code(s): I10 - Essential (primary) hypertension Is this a current diagnosis for this admission?: Yes Plan: Reportedly patient is not on any medication and she does not have any follow-up with her physician. I will start her on beta-mt and ALLA inhibitor. (3) Altered mental status Qualifiers: Altered mental status type: disorientation Qualified Code(s): R41.0 - Disorientation, unspecified Is this a current diagnosis for this admission?: Yes Plan: Now her acute confusional state is explained by the acute ischemic stroke she has sustained. Patient started to clear her mind (4) Diabetes Qualifiers: Diabetes mellitus type: type 2 Is this a current diagnosis for this admission?: Yes Plan: I will start her on sliding scale and and p.o. oral hypoglycemic agent. (5) Tobacco dependence Is this a current diagnosis for this admission?: Yes Plan: Patient strongly advised to quit smoking and to do lifestyle modification. - Time Time Spent with patient: 35 or more minutes
[2017-07-02] MEDS ORDERED: ASPIRIN 325 MG TABLET PO ONE (14:00)
[2017-07-02] MEDS ORDERED: NICOTINE 14 MG/24 HR PATCH.TD24 TD PRN (14:03)
[2017-07-02] MEDS ORDERED: METFORMIN HCL 500 MG TABLET PO SCH (16:00)
[2017-07-02] MEDS: ATORVASTATIN CALCIUM 80 MG TABLET PO SCH (21:29)
[2017-07-02] MEDS: CARVEDILOL 3.125 MG TABLET PO SCH (21:29)
[2017-07-03] MEDS: INSULIN LISPRO 100 UNIT/ML 3 ML VIAL SUBCUT PRN ×4 (08:48→23:09)
[2017-07-03] MEDS: CARVEDILOL 3.125 MG TABLET PO SCH ×2 (09:32→20:50)
[2017-07-03] MEDS: DOCUSATE SODIUM 100 MG CAPSULE PO SCH ×2 (09:32→17:07)
[2017-07-03] MEDS: ENOXAPARIN SODIUM INJ 40 MG/0.4 ML DISP.SYRIN SUBCUT SCH (09:32)
[2017-07-03] MEDS ORDERED: LISINOPRIL 5 MG TABLET PO SCH (10:00)
--- NOTE | 2017-07-03 12:20 | PDOC PROGRESS REPORT ---
Subjective Progress Note for:: 07/03/17 Subjective:: I seen patient sitting up in bed enjoying breakfast. She is awake alert and oriented. She is more conversant and her mentation is clearing remarkably. Her MRI shows tiny infarcts involving the bilateral frontal and right parietal lobes. She is scheduled to have carotid Doppler and echocardiogram. Reason For Visit: ENCEPHALOPATHY DEHYDRATION Physical Exam Vital Signs: Temp Pulse Resp BP Pulse Ox 98.2 F 60 16 165/60 H 93 07/03/17 07:49 07/03/17 11:42 07/03/17 11:42 07/03/17 07:49 07/03/17 07:49 Intake & Output 07/02/17 07/03/17 07/04/17 06:59 06:59 06:59 Intake Total 2200 2260 Balance 2200 2260 Weight 72.7 kg 71.8 kg General appearance: PRESENT: no acute distress Head exam: PRESENT: atraumatic, normocephalic Eye exam: PRESENT: conjunctiva pink, EOMI, PERRLA. ABSENT: scleral icterus Respiratory exam: PRESENT: clear to auscultation radha. ABSENT: rales, rhonchi, wheezes Cardiovascular exam: PRESENT: RRR. ABSENT: diastolic murmur, rubs, systolic murmur GI/Abdominal exam: PRESENT: normal bowel sounds, soft. ABSENT: distended, guarding, mass, organolmegaly, rebound, tenderness Neurological exam: PRESENT: alert, awake, oriented to time, oriented to situation, reflexes normal Psychiatric exam: PRESENT: appropriate affect, normal mood. ABSENT: homicidal ideation, suicidal ideation Results Laboratory Results: 07/02/17 06:20 Impressions: Acute Abdomen Series 07/01/17 10:01 IMPRESSION: Nonobstructive bowel gas pattern. No acute infiltrates Head CT 07/01/17 10:01 IMPRESSION: No acute abnormality in the brain. EVIDENCE OF ACUTE STROKE: NO. Head MRI 07/02/17 00:00 IMPRESSION: Tiny nonhemorrhagic acute or subacute cortical infarcts in the bilateral frontal and right parietal regions. EVIDENCE OF ACUTE STROKE: Yes Assessment & Plan - Diagnosis (1) Acute ischemic stroke Is this a current diagnosis for this admission?: Yes Plan: patient has been on high intensity statin and aspirin. Patient scheduled to have carotid Doppler and echocardiogram. Stroke nurse, was consulted. Patient is also participating with physical and occupational therapy (2) Hypertension Qualifiers: Hypertension type: essential hypertension Qualified Code(s): I10 - Essential (primary) hypertension Is this a current diagnosis for this admission?: Yes Plan: Reportedly patient is not on any medication and she does not have any follow-up with her physician. I will start her on beta-mt and ALLA inhibitor. (3) Altered mental status Qualifiers: Altered mental status type: disorientation Qualified Code(s): R41.0 - Disorientation, unspecified Is this a current diagnosis for this admission?: Yes Plan: Her mental status markedly improved. (4) Diabetes Qualifiers: Diabetes mellitus type: type 2 Is this a current diagnosis for this admission?: Yes Plan: I will start her on sliding scale and and p.o. oral hypoglycemic agent. (5) Tobacco dependence Is this a current diagnosis for this admission?: Yes Plan: Patient strongly advised to quit smoking and to do lifestyle modification.
[2017-07-03 13:09] LABS: INTERNATIONAL RATION (INR) 0.95; PROTHROMBIN TIME 13.2 SEC (11.4-15.4)
--- NOTE | 2017-07-03 16:14 | RADIOLOGY REPORT (SQ) ---
EXAM DESCRIPTION: CAROTID DOPPLER COMPLETED DATE/TIME: 07/03/2017 4:05 pm REASON FOR STUDY: ischemic stroke COMPARISON: MRI brain 07/02/2017 CT brain 07/01/2017 TECHNIQUE: Grayscale ultrasound, Doppler velocity and spectra, and color Doppler images acquired of the extra-cranial carotid and vertebral arteries. Images stored on PACS. LIMITATIONS: None. FINDINGS: RIGHT CAROTID CCA Velocities: Within normal limits. ICA Velocities Peak systolic 0.56 m/s. End diastolic 0.13 m/s. Proximal ICA/CCA peak systolic ratio 1.2. Spectra normal. No significant plaque. LEFT CAROTID CCA Velocities: Within normal limits. ICA Velocities Peak systolic 0.83 m/s. End diastolic 0.16 m/s. Proximal ICA/CCA peak systolic ratio 1.0. Spectra normal. Minimal mixed calcific and noncalcific plaque left carotid bifurcation VERTEBRAL ARTERIES: Antegrade flow. Normal waveforms. SUBCLAVIAN ARTERIES: Not evaluated OTHER: No other significant finding. IMPRESSION: No flow significant stenosis at the carotid bifurcations. COMMENT: Quality ID #[id number]: Velocity criteria are extrapolated from the diameter data as defined by t he Society of Radiologists in Ultrasound Consensus Conference. Radiology 2003: 229; 340-346. TECHNICAL DOCUMENTATION: JOB ID: [id number] [employer]- All Rights Reserved Reading location - IP/workstation name: [facility]
[2017-07-03] MEDS ORDERED: ASPIRIN 81 MG TABLET, CHEWABLE PO ONE (16:30)
--- NOTE | 2017-07-03 18:03 | XCELERA REPORT ---
[address] [address] Transthoracic Echocardiogram Report Name: RODNEY GALEANA Age: 62 yrs Gender: Female : 1955 Patient Status: Inpatient Patient Location: [address] [place] [address] Study Date: 07/03/2017 02:17 PM Height: 66 in Weight: 158 lb BSA: 1.8 m2 Procedure: A complete two-dimensional transthoracic echocardiogram was performed (2D, M-mode, spectral and color flow Doppler). The study was technically adequate with some images being suboptimal in quality. Reason For Study: ischemic stroke Ordering Physician: DELIA SHERIFF Performed By: Petra Qureshi Interpretation Summary The left ventricular ejection fraction is normal. There is borderline concentric left ventricular hypertrophy. The left ventricle is grossly normal size. Doppler measurements suggest pseudonormalized left ventricular relaxation, which is associated with grade II/IV or mild to moderate diastolic dysfunction Wall motion cannot be accurately commented on, but no definite regional wall motion abnormalities noted. The right ventricular systolic function is normal. The right atrium is normal in size The left atrial size is normal. There is a trace amount of mitral regurgitation There is no mitral valve stenosis. No aortic regurgitation is present. There is no aortic valve stenosis There is a trace or physiologic amount of tricuspid regurgitation Tricuspid regurgitation jet envelope not well defined to measure RV systolic pressure accurately. There is no tricuspid stenosis. The aortic root is not well visualized but is probably normal size. The inferior vena cava appeared normal and decreased > 50% with respiration (RAP 5-10 mmHg) There is no pericardial effusion. MMode/2D Measurements & Calculations RVDd: 2.8 cm LVIDd: 5.2 cm FS: 37.4 % Ao root diam: 3.1 cm IVSd: 0.92 cm LVIDs: 3.3 cm EDV(Teich): 129.0 ml LVPWd: 0.91 cmESV(Teich): 42.5 ml Ao root area: 7.4 cm2 EF(Teich): 67.0 % LA dimension: 3.4 cm LVOT diam: 2.1 cm LVOT area: 3.5 cm2 Doppler Measurements & Calculations MV E max hector: MV P1/2t max hector: Ao V2 max: LV V1 max P.4 cm/sec 70.1 cm/sec 138.5 cm/sec 4.6 mmHg MV A max hector: MV P1/2t: 64.5 msec Ao max PG: LV V1 max: 113.0 cm/sec MVA(P1/2t): 3.4 cm2 7.7 mmHg 107.0 cm/sec MV E/A: 0.61 MV dec slope: MORTEZA(V,D): 2.7 cm2 318.5 cm/sec2 PA V2 max: 92.9 cm/sec PA max P.5 mmHg Left Ventricle The left ventricle is grossly normal size. There is borderline concentric left ventricular hypertrophy. The left ventricular ejection fraction is normal. Doppler measurements suggest pseudonormalized left ventricular relaxation, which is associated with grade II/IV or mild to moderate diastolic dysfunction. Wall motion cannot be accurately commented on, but no definite regional wall motion abnormalities noted. Right Ventricle The right ventricle is grossly normal size. There is normal right ventricular wall thickness. The right ventricular systolic function is normal. Atria The right atrium is normal in size. The left atrial size is normal. Interarterial septum not well visualized and not well dopplered. Cannot comment on ASD/PFO presence. Mitral Valve The mitral valve is grossly normal. There is no mitral valve stenosis. There is a trace amount of mitral regurgitation. Aortic Valve The aortic valve is grossly normal. There is no aortic valve stenosis. No aortic regurgitation is present. Tricuspid Valve The tricuspid valve is not well visualized, but is grossly normal. There is no tricuspid stenosis. There is a trace or physiologic amount of tricuspid regurgitation. Tricuspid regurgitation jet envelope not well defined to measure RV systolic pressure accurately. Pulmonic Valve The pulmonic valve is not well visualized. Great Vessels The aortic root is not well visualized but is probably normal size. The inferior vena cava appeared normal and decreased > 50% with respiration (RAP 5-10 mmHg). Effusions There is no pericardial effusion. Incidental Findings No definite cardiac source of CVA/TIA noted on this particular trans- thoracic study. Consider MALVIN if clinically indicated. May consider mobile cardiac telemetry monitoring (MCT) for ruling out transient AFIB. : DELIA SHERIFF > Radha Landa
[2017-07-03] MEDS: ATORVASTATIN CALCIUM 80 MG TABLET PO SCH (20:50)
[2017-07-04] MEDS ORDERED: CARVEDILOL 3.125 MG TABLET PO SCH (08:02)
[2017-07-04] MEDS ORDERED: LISINOPRIL 5 MG TABLET PO SCH (08:03)
[2017-07-04] MEDS: INSULIN LISPRO 100 UNIT/ML 3 ML VIAL SUBCUT PRN ×4 (08:14→22:17)
[2017-07-04] MEDS: METFORMIN HCL 500 MG TABLET PO SCH ×2 (08:15→15:54)
[2017-07-04] MEDS: ASPIRIN 81 MG TABLET, CHEWABLE PO SCH (09:22)
[2017-07-04] MEDS: LISINOPRIL 10 MG TABLET PO SCH (09:23)
[2017-07-04] MEDS: DOCUSATE SODIUM 100 MG CAPSULE PO SCH ×2 (09:23→17:33)
[2017-07-04] MEDS: CARVEDILOL 12.5 MG TABLET PO SCH ×2 (09:24→21:39)
[2017-07-04] MEDS: ENOXAPARIN SODIUM INJ 40 MG/0.4 ML DISP.SYRIN SUBCUT SCH (09:24)
--- NOTE | 2017-07-04 10:50 | PDOC PROGRESS REPORT ---
Subjective Progress Note for:: 07/04/17 Subjective:: Patient has been doing well. She is awake alert and oriented. No fever, no nausea vomiting or abdominal pain. She eats well and she tolerates well. And increase the dose of her metformin from 502,000 mg twice daily and also increase the dose of her lisinopril and Coreg. Her carotid Doppler and echocardiogram reported normal. Reason For Visit: ENCEPHALOPATHY DEHYDRATION Physical Exam Vital Signs: Temp Pulse Resp BP Pulse Ox 98.7 F 74 16 173/91 H 97 07/04/17 07:12 07/04/17 07:12 07/04/17 07:12 07/04/17 07:12 07/04/17 07:12 Intake & Output 07/03/17 07/04/17 07/05/17 06:59 06:59 06:59 Intake Total 2260 1390 Balance 2260 1390 Weight 71.8 kg 70.4 kg General appearance: PRESENT: no acute distress Head exam: PRESENT: atraumatic, normocephalic Ear exam: PRESENT: normal external ear exam Respiratory exam: PRESENT: clear to auscultation radha. ABSENT: rales, rhonchi, wheezes Cardiovascular exam: PRESENT: RRR. ABSENT: diastolic murmur, rubs, systolic murmur GI/Abdominal exam: PRESENT: normal bowel sounds, soft. ABSENT: distended, guarding, mass, organolmegaly, rebound, tenderness Neurological exam: PRESENT: alert, awake, oriented to person, oriented to place , oriented to time, oriented to situation, CN II-XII grossly intact. ABSENT: motor sensory deficit Psychiatric exam: PRESENT: appropriate affect, normal mood. ABSENT: homicidal ideation, suicidal ideation Results Laboratory Results: 07/02/17 06:20 Impressions: Acute Abdomen Series 07/01/17 10:01 IMPRESSION: Nonobstructive bowel gas pattern. No acute infiltrates Head CT 07/01/17 10:01 IMPRESSION: No acute abnormality in the brain. EVIDENCE OF ACUTE STROKE: NO. Head MRI 07/02/17 00:00 IMPRESSION: Tiny nonhemorrhagic acute or subacute cortical infarcts in the bilateral frontal and right parietal regions. EVIDENCE OF ACUTE STROKE: Yes Carotid Doppler Study 07/03/17 00:00 IMPRESSION: No flow significant stenosis at the carotid bifurcations. Assessment & Plan - Diagnosis (1) Acute ischemic stroke Is this a current diagnosis for this admission?: Yes Plan: patient has been on high intensity statin and aspirin. Patient scheduled to have carotid Doppler and echocardiogram. Stroke nurse, was consulted. Patient is also participating with physical and occupational therapy (2) Hypertension Qualifiers: Hypertension type: essential hypertension Qualified Code(s): I10 - Essential (primary) hypertension Is this a current diagnosis for this admission?: Yes Plan: Reportedly patient is not on any medication and she does not have any follow-up with her physician. I will start her on beta-mt and ALLA inhibitor. (3) Altered mental status Qualifiers: Altered mental status type: disorientation Qualified Code(s): R41.0 - Disorientation, unspecified Is this a current diagnosis for this admission?: Yes Plan: Her mental status markedly improved. (4) Diabetes Qualifiers: Diabetes mellitus type: type 2 Is this a current diagnosis for this admission?: Yes Plan: I will start her on sliding scale and and p.o. oral hypoglycemic agent. (5) Tobacco dependence Is this a current diagnosis for this admission?: Yes Plan: Patient strongly advised to quit smoking and to do lifestyle modification. - Time Time Spent with patient: 25-34 minutes
[2017-07-04] MEDS: ATORVASTATIN CALCIUM 80 MG TABLET PO SCH (21:39)
[2017-07-05] MEDS: METFORMIN HCL 500 MG TABLET PO SCH ×2 (07:53→18:00)
[2017-07-05] MEDS: INSULIN LISPRO 100 UNIT/ML 3 ML VIAL SUBCUT PRN ×4 (07:53→22:55)
[2017-07-05] MEDS: ASPIRIN 81 MG TABLET, CHEWABLE PO SCH (10:02)
[2017-07-05] MEDS: ENOXAPARIN SODIUM INJ 40 MG/0.4 ML DISP.SYRIN SUBCUT SCH (10:03)
[2017-07-05] MEDS: CARVEDILOL 12.5 MG TABLET PO SCH ×2 (10:03→21:56)
[2017-07-05] MEDS: LISINOPRIL 10 MG TABLET PO SCH (10:03)
[2017-07-05] MEDS: DOCUSATE SODIUM 100 MG CAPSULE PO SCH ×2 (10:06→18:06)
--- NOTE | 2017-07-05 10:47 | PDOC PROGRESS REPORT ---
Subjective Progress Note for:: 07/05/17 Subjective:: No significant event overnight. Patient is awake alert oriented but she is debilitated and deconditioned. So patient deserves acute inpatient rehab for which I put a consult for process planner. Reason For Visit: ENCEPHALOPATHY DEHYDRATION Physical Exam Vital Signs: Temp Pulse Resp BP Pulse Ox 98.6 F 71 12 161/68 H 97 07/05/17 07:41 07/05/17 07:41 07/05/17 07:41 07/05/17 07:41 07/05/17 07:41 Intake & Output 07/04/17 07/05/17 07/06/17 06:59 06:59 06:59 Intake Total 1390 1411 Balance 1390 1411 Weight 70.4 kg 70.9 kg General appearance: PRESENT: no acute distress, well-developed, well-nourished Head exam: PRESENT: atraumatic, normocephalic Neck exam: ABSENT: carotid bruit, JVD, lymphadenopathy, thyromegaly Respiratory exam: PRESENT: clear to auscultation radha. ABSENT: rales, rhonchi, wheezes Cardiovascular exam: PRESENT: RRR. ABSENT: diastolic murmur, rubs, systolic murmur GI/Abdominal exam: PRESENT: normal bowel sounds, soft. ABSENT: distended, guarding, mass, organolmegaly, rebound, tenderness Neurological exam: PRESENT: alert, awake, oriented to person, oriented to place , oriented to time, oriented to situation, CN II-XII grossly intact. ABSENT: motor sensory deficit Psychiatric exam: PRESENT: appropriate affect, normal mood. ABSENT: homicidal ideation, suicidal ideation Results Laboratory Results: 07/02/17 06:20 Impressions: Acute Abdomen Series 07/01/17 10:01 IMPRESSION: Nonobstructive bowel gas pattern. No acute infiltrates Head CT 07/01/17 10:01 IMPRESSION: No acute abnormality in the brain. EVIDENCE OF ACUTE STROKE: NO. Head MRI 07/02/17 00:00 IMPRESSION: Tiny nonhemorrhagic acute or subacute cortical infarcts in the bilateral frontal and right parietal regions. EVIDENCE OF ACUTE STROKE: Yes Carotid Doppler Study 07/03/17 00:00 IMPRESSION: No flow significant stenosis at the carotid bifurcations. Assessment & Plan - Diagnosis (1) Acute ischemic stroke Is this a current diagnosis for this admission?: Yes Plan: patient has been on high intensity statin and aspirin. Patient scheduled to have carotid Doppler and echocardiogram. Stroke nurse, was consulted. Patient is also participating with physical and occupational therapy. Patient qualify for acute inpatient rehab and I consulted process planner. (2) Hypertension Qualifiers: Hypertension type: essential hypertension Qualified Code(s): I10 - Essential (primary) hypertension Is this a current diagnosis for this admission?: Yes Plan: Reportedly patient is not on any medication and she does not have any follow-up with her physician. I will start her on beta-mt and ALLA inhibitor. (3) Altered mental status Qualifiers: Altered mental status type: disorientation Qualified Code(s): R41.0 - Disorientation, unspecified Is this a current diagnosis for this admission?: Yes Plan: Currently patient is at her baseline. (4) Diabetes Qualifiers: Diabetes mellitus type: type 2 Is this a current diagnosis for this admission?: Yes Plan: Her diabetes is uncontrolled with hemoglobin of 10.7. This partly explained by patient's noncompliance and she was not on any medication at the time of admission. (5) Tobacco dependence Is this a current diagnosis for this admission?: Yes Plan: Patient strongly advised to quit smoking and to do lifestyle modification. - Time Time Spent with patient: 25-34 minutes
[2017-07-05] MEDS: ATORVASTATIN CALCIUM 80 MG TABLET PO SCH (21:56)
[2017-07-06] MEDS: METFORMIN HCL 500 MG TABLET PO SCH ×2 (08:13→16:56)
[2017-07-06] MEDS: INSULIN LISPRO 100 UNIT/ML 3 ML VIAL SUBCUT PRN ×4 (08:17→22:12)
[2017-07-06] MEDS: ENOXAPARIN SODIUM INJ 40 MG/0.4 ML DISP.SYRIN SUBCUT SCH (10:18)
[2017-07-06] MEDS: ASPIRIN 81 MG TABLET, CHEWABLE PO SCH (10:18)
[2017-07-06] MEDS: LISINOPRIL 10 MG TABLET PO SCH (10:18)
[2017-07-06] MEDS: CARVEDILOL 12.5 MG TABLET PO SCH ×2 (10:18→22:12)
[2017-07-06] MEDS: DOCUSATE SODIUM 100 MG CAPSULE PO SCH ×2 (10:25→17:25)
--- NOTE | 2017-07-06 13:09 | PDOC PROGRESS REPORT ---
Subjective Progress Note for:: 07/06/17 Subjective:: Reportedly patient has 2 episodes of watery diarrhea. Otherwise she has been doing well. She has good appetite and she is mentally clear. If her diarrhea subsided she is potential discharge for tomorrow. Reason For Visit: ENCEPHALOPATHY DEHYDRATION Physical Exam Vital Signs: Temp Pulse Resp BP Pulse Ox 98.4 F 65 16 153/68 H 95 07/06/17 12:00 07/06/17 12:00 07/06/17 12:00 07/06/17 12:00 07/06/17 12:00 Intake & Output 07/05/17 07/06/17 07/07/17 06:59 06:59 06:59 Intake Total 1411 1288 120 Balance 1411 1288 120 Weight 70.9 kg 73.1 kg Results Laboratory Results: 07/02/17 06:20 Impressions: Acute Abdomen Series 07/01/17 10:01 IMPRESSION: Nonobstructive bowel gas pattern. No acute infiltrates Head CT 07/01/17 10:01 IMPRESSION: No acute abnormality in the brain. EVIDENCE OF ACUTE STROKE: NO. Head MRI 07/02/17 00:00 IMPRESSION: Tiny nonhemorrhagic acute or subacute cortical infarcts in the bilateral frontal and right parietal regions. EVIDENCE OF ACUTE STROKE: Yes Carotid Doppler Study 07/03/17 00:00 IMPRESSION: No flow significant stenosis at the carotid bifurcations. Assessment & Plan - Diagnosis (1) Acute ischemic stroke Is this a current diagnosis for this admission?: Yes Plan: patient has been on high intensity statin and aspirin. Patient scheduled to have carotid Doppler and echocardiogram. Stroke nurse, was consulted. Patient is also participating with physical and occupational therapy. Patient is potential discharge for tomorrow. (2) Hypertension Qualifiers: Hypertension type: essential hypertension Qualified Code(s): I10 - Essential (primary) hypertension Is this a current diagnosis for this admission?: Yes Plan: Reportedly patient is not on any medication and she does not have any follow-up with her physician. I will start her on beta-mt and ALLA inhibitor. (3) Altered mental status Qualifiers: Altered mental status type: disorientation Qualified Code(s): R41.0 - Disorientation, unspecified Is this a current diagnosis for this admission?: Yes Plan: Currently patient is at her baseline. (4) Diabetes Qualifiers: Diabetes mellitus type: type 2 Is this a current diagnosis for this admission?: Yes Plan: Her diabetes is uncontrolled with hemoglobin of 10.7. This partly explained by patient's noncompliance and she was not on any medication at the time of admission. (5) Tobacco dependence Is this a current diagnosis for this admission?: Yes Plan: Patient strongly advised to quit smoking and to do lifestyle modification. - Time Time Spent with patient: 25-34 minutes
[2017-07-06] MEDS ORDERED: LOPERAMIDE HCL 2 MG CAPSULE PO PRN (18:46)
[2017-07-06] MEDS ORDERED: LOPERAMIDE HCL 2 MG CAPSULE PO ONE (19:15)
[2017-07-06] MEDS: ATORVASTATIN CALCIUM 80 MG TABLET PO SCH (22:12)
[2017-07-07 05:28] LABS: HEMATOCRIT 45.9 % (36.0-47.0); HEMOGLOBIN 15.8 g/dL (12.0-15.5); MEAN CORPUSCULAR HEMOGLOBIN 28.5 pg (27.0-33.4); MEAN CORPUSCULAR HGB CONC 34.3 g/dL (32.0-36.0); MEAN CORPUSCULAR VOLUME 83 fl (80-97); PLATELET COUNT 161 10^3/uL (150-450); RED BLOOD COUNT 5.54 10^6/uL (3.72-5.28); RED CELL DISTRIBUTION WIDTH 13.7 % (11.5-14.0); WHITE BLOOD COUNT 9.1 10^3/uL (4.0-10.5)
[2017-07-07 05:47] LABS: ANION GAP 12 (5-19); BLOOD UREA NITROGEN 23 mg/dL (7-20); CALCIUM 9.3 mg/dL (8.4-10.2); CARBON DIOXIDE 27 mmol/L (22-30); CHLORIDE 101 mmol/L (98-107); GLUCOSE 195 mg/dL (75-110); POTASSIUM 3.7 mmol/L (3.6-5.0); SODIUM 139.5 mmol/L (137-145)
[2017-07-07 06:57] LABS: APPEARANCE,URINE CLOUDY; BILIRUBIN,URINE NEGATIVE (NEGATIVE); COLOR,URINE YELLOW; GLUCOSE, URINE NEGATIVE (NEGATIVE); KETONES,URINE NEGATIVE (NEGATIVE); LEUKOCYTE ESTERASE,URINE MODERATE (NEGATIVE); NITRITE,URINE NEGATIVE (NEGATIVE); PROTEIN,URINE NEGATIVE (NEGATIVE); URINE SPECIFIC GRAVITY 1.014; UROBILINOGEN,URINE NEGATIVE mg/dL (<2.0)
--- NOTE | 2017-07-07 08:34 | PDOC TRANSFER SUMMARY ---
General - Admit/Disc Date/PCP Admission Date/Primary Care Provider: 07/01/17 14:53 NO LOCALMD Discharge Date: 07/07/17 - Discharge Diagnosis (1) Acute ischemic stroke Is this a current diagnosis for this admission?: Yes (2) Hypertension Is this a current diagnosis for this admission?: Yes (3) Altered mental status Is this a current diagnosis for this admission?: Yes (4) Diabetes Is this a current diagnosis for this admission?: Yes (5) Tobacco dependence Is this a current diagnosis for this admission?: Yes - Additional Information Resuscitation Status: Full Code Discharge Diet: Diabetic Discharge Activity: Activity As Tolerated Prescriptions: Aspirin [Aspirin 81 mg Chewable Tablet] 81 mg PO DAILY #30 tab.chew Atorvastatin Calcium [Lipitor 80 mg Tablet] 80 mg PO QHS #30 tablet Carvedilol 12.5 mg PO BID 60 Days tablet Glipizide [Glocotrol 5 Mg Tablet] 5 mg PO BID #60 tablet Lisinopril 10 mg PO DAILY #30 tablet Metformin HCl 500 mg PO BID #60 tablet Home Medications: Aspirin [Aspirin 81 mg Chewable Tablet] 81 mg PO DAILY #30 tab.chew 07/07/17 Atorvastatin Calcium [Lipitor 80 mg Tablet] 80 mg PO QHS #30 tablet 07/07/17 Carvedilol 12.5 mg PO BID 60 Days tablet 07/07/17 Glipizide [Glocotrol 5 Mg Tablet] 5 mg PO BID #60 tablet 07/07/17 Lisinopril 10 mg PO DAILY #30 tablet 07/07/17 Metformin HCl 500 mg PO BID #60 tablet 07/07/17 History of Present Illness Admission Date/PCP: 07/01/17 14:53 NO LOCALUT History of Present Illness: Patient presents emergency room with complaints of vomiting and decreased mental status. Patient apparently had been feeling ill for about 2-3 days with some vomiting. This information is obtained solely from the chart as patient is unable to provide any information due to her confusion. Workup done in the emergency room apparently including CT scan, ABG, EKG and other laboratory data really showed no light as to what is going on. She has had no focal neurological deficits. There is no seizures and she had been able to respond with a few words. The ED physicians feels that lumbar puncture is not indicated and a conchal as patient has no neck stiffness and she is afebrile at this point. Although her hemoglobin is elevated at 18 however this is chronic looking back at her chart and to be related to nicotine use. She is not azotemic. Her blood sugar was elevated at 305 but obviously this would not explain was going on. Ammonia level will be checked. There is some question of some possible drug use however toxicology screen is negative. She did receive Narcan on arrival to the emergency room with no change in mental status. Hospital Course Hospital Course: This is a 62 years old female patient who presented with sudden onset acute confusional states nausea and vomiting. In ER patient subjected to CT scan of the head which is negative and the next morning she had MRI of the brain which was reported as tiny hemorrhagic acute or subacute cortical infarcts in the bilateral and right parietal lobes. Patient has been managed accordingly with Lipitor 80 mg p.o. nightly aspirin 81 mg p.o. daily and close monitoring. Of note patient has diabetes, hypertension and hyperlipidemia but she is noncompliant and at the time of admission patient was not on any medication. Her hospital course is most patient become more awake alert conversant and oriented to herself and situation. She eats well and tolerates well. She had an episode of watery diarrhea which subsided after she was given Imodium. This morning I evaluated the patient while she is resting in bed she is awake alert and oriented she is not in any form of acute cardiorespiratory distress. Vital signs are within normal limits and her labs are stable. Patient stable enough to be discharged. Patient discharged with lisinopril 10 mg p.o. daily Coreg 12.5 mg twice a day, Glucotrol 5 mg twice daily, metformin 500 mg twice daily, Lipitor 80 mg nightly, aspirin 81 mg p.o. daily. Physical Exam Vital Signs: Temp Pulse Resp BP Pulse Ox 98.6 F 66 16 132/61 H 95 07/07/17 07:30 07/07/17 07:30 07/07/17 07:30 07/07/17 07:30 07/07/17 07:30 Intake & Output 07/06/17 07/07/17 07/08/17 06:59 06:59 06:59 Intake Total 1288 840 Balance 1288 840 Weight 73.1 kg 72.2 kg General appearance: PRESENT: no acute distress, well-developed, well-nourished Head exam: PRESENT: atraumatic, normocephalic Neck exam: ABSENT: carotid bruit, JVD, lymphadenopathy, thyromegaly Respiratory exam: PRESENT: clear to auscultation radha. ABSENT: rales, rhonchi, wheezes Cardiovascular exam: PRESENT: RRR. ABSENT: diastolic murmur, rubs, systolic murmur GI/Abdominal exam: PRESENT: normal bowel sounds, soft. ABSENT: distended, guarding, mass, organolmegaly, rebound, tenderness Neurological exam: PRESENT: alert, awake, oriented to person, oriented to place , oriented to time, oriented to situation, CN II-XII grossly intact. ABSENT: motor sensory deficit Psychiatric exam: PRESENT: appropriate affect, normal mood. ABSENT: homicidal ideation, suicidal ideation Results Laboratory Results: 07/07/17 04:36 07/07/17 04:36 07/07/17 07/07/17 07/07/17 04:36 04:36 05:55 WBC 9.1 RBC 5.54 H Hgb 15.8 H Hct 45.9 MCV 83 MCH 28.5 MCHC 34.3 RDW 13.7 Plt Count 161 Sodium 139.5 Potassium 3.7 Chloride 101 Carbon Dioxide 27 Anion Gap 12 BUN 23 H Creatinine 0.52 Est GFR ( Amer) > 60 Est GFR (Non-Af Amer) > 60 Glucose 195 H Calcium 9.3 Urine Color YELLOW Urine Appearance CLOUDY Urine pH 5.0 Ur Specific [place] 1.014 Urine Protein NEGATIVE Urine Glucose (UA) NEGATIVE Urine Ketones NEGATIVE Urine Blood SMALL H Urine Nitrite NEGATIVE Ur Leukocyte Esterase MODERATE H Urine WBC (Auto) 7 Urine RBC (Auto) 1 Impressions: Acute Abdomen Series 07/01/17 10:01 IMPRESSION: Nonobstructive bowel gas pattern. No acute infiltrates Head CT 07/01/17 10:01 IMPRESSION: No acute abnormality in the brain. EVIDENCE OF ACUTE STROKE: NO. Head MRI 07/02/17 00:00 IMPRESSION: Tiny nonhemorrhagic acute or subacute cortical infarcts in the bilateral frontal and right parietal regions. EVIDENCE OF ACUTE STROKE: Yes Carotid Doppler Study 07/03/17 00:00 IMPRESSION: No flow significant stenosis at the carotid bifurcations. Transfer Plan - Time Spent with Patient Time spent with patient: Greater than 30 Minutes Qualifiers - * PATIENT BEING DISCHARGED WITH ANY OF THE FOLLOWING DIAGNOSIS: Stroke VTE patient discharged on overlapping Therapy?: No Reason(s) for not prescribing Overlap Therapy:: Not indicated Stroke Pt being discharged on Anti-thrombolytic therapy?: Yes Stroke Pt being discharged on Anti-coagulation therapy?: No Reason(s) for not prescribing Anti-coagulation therapy:: Not indicated Stroke Pt being discharged on Statins?: Yes OR Pt being discharged on Aspirin therapy?: No Reason(s) for not prescribing Aspirin therapy:: Not indicated OR Pt being discharged on Statins?: No Reason(s) for not prescribing Statin therapy:: Not indicated OR Pt discharged ACEI/ARBS?: No Reason(s) for not prescribing ACEI/ARBS:: Not indicated HF Pt being discharged on ACEI for LVEF less than 40%?: No Reason(s) for not prescribing ACEI:: Not indicated HF Pt being discharged on ARBS for LVEF less than 40%?: No Reason(s) for not prescribing ARBS:: Not indicated HF Pt with Afib discharged with Warfarin?: No Reason(s) for not prescribing Warfarin:: Not indicated HF Pt discharged on evidence-based Beta Jess:: No Reason(s) for not prescribing evidence-based Beta Jess:: Not indicated
[2017-07-07] MEDS: METFORMIN HCL 500 MG TABLET PO SCH ×2 (08:35→15:52)
[2017-07-07] MEDS: INSULIN LISPRO 100 UNIT/ML 3 ML VIAL SUBCUT PRN ×2 (08:35→12:36)
[2017-07-07] MEDS: ENOXAPARIN SODIUM INJ 40 MG/0.4 ML DISP.SYRIN SUBCUT SCH (10:06)
[2017-07-07] MEDS: CARVEDILOL 12.5 MG TABLET PO SCH (10:06)
[2017-07-07] MEDS: ASPIRIN 81 MG TABLET, CHEWABLE PO SCH (10:06)
[2017-07-07] MEDS: LISINOPRIL 10 MG TABLET PO SCH (10:07)
[2017-07-07] MEDS: DOCUSATE SODIUM 100 MG CAPSULE PO SCH (10:07)
[2017-07-07 11:58] VITALS: BP 138/70
== END 2017-07-07 16:35 | DRG 64 ==
LOC: ER 09:47 → EH 14:53 → OBSVTOIN 14:53 → 3N 17:56
PROVIDERS: ADMIT Internal Medicine; ATTEND Internal Medicine
DX: I63.9 Cerebral infarction, unspecified (principal); G93.49 Other encephalopathy; I10 Essential (primary) hypertension; E86.0 Dehydration; E11.65 Type 2 diabetes mellitus with hyperglycemia; F32.9 Major depressive disorder, single episode, unspecified; J44.9 Chronic obstructive pulmonary disease, unspecified; F17.200 Nicotine dependence, unspecified, uncomplicated; E78.5 Hyperlipidemia, unspecified; Z90.710 Acquired absence of both cervix and uterus; Z90.49 Acquired absence of other specified parts of digestive tract; Z88.6 Allergy status to analgesic agent; Z91.040 Latex allergy status; Z91.19 Patient's noncompliance with other medical treatment and regimen
CPT/HCPCS: 36415; 36600; 70450; 70553; 74022; 80048; 80053; 80307; 81001; 82140; 82803; 82962; 83036; 83605; 83735; 84484; 85025; 85027; 85610; 87040; 87493; 93005; 93010; 93306; 93880; 94640; 96361; 96374; 99291; A9577; G8987-GO; G8988-GO; J1650; J1815; J2310; J2405; J7030

== ENCOUNTER 2017-08-15 08:10 | Emergency (ER) | payer MEDICARE, OTHER ==
[2017-08-15] MEDS ORDERED: HYDRALAZINE HCL INJ/PF 20 MG/1 ML SDV IV ONE (08:29)
--- NOTE | 2017-08-15 08:34 | ER Document Report ---
ED General - General Stated Complaint: BLOOD PRESSURE ISSUES Time Seen by Provider: 08/15/17 08:20 Mode of Arrival: Medic Information source: Patient, Emergency Med Personnel Notes: 62-year-old female brought to the emergency department by EMS for hypertension and headache. Patient's daughter contacted EMS. Was concerned that her mom was having a stroke. Patient has a history of CVA 6 weeks ago. She has been out of her blood pressure medication for the last 3 days. EMS states that the patient did not have any neuro deficits on arrival. Patient only complained of nausea and vomiting. Headache has resolved. Patient denies chest pain, shortness of breath, abdominal pain, numbness, tingling, or weakness. TRAVEL OUTSIDE OF THE [place] IN LAST 30 DAYS: No - HPI Onset: This morning Onset/Duration: Gradual Quality of pain: No pain Severity: None Associated symptoms: Headache, Nausea, Vomiting Exacerbated by: Denies Relieved by: Denies Similar symptoms previously: No Recently seen / treated by doctor: No - Related Data Allergies/Adverse Reactions: latex Allergy (Verified 07/01/17 13:43) morphine Adverse Reaction (Mild, Verified 07/01/17 13:43) Past Medical History - Social History Smoking Status: Current Some Day Smoker Family History: None - Past Medical History Cardiac Medical History: Reports: Hx Hypertension Pulmonary Medical History: Reports: Hx COPD Endocrine Medical History: Reports: Hx Diabetes Mellitus Type 2 Renal/ Medical History: Denies: Hx Peritoneal Dialysis Psychiatric Medical History: Reports: Hx Anxiety, Hx Depression Infectious Medical History: Reports: Hx C-Diff Past Surgical History: Reports: Hx Appendectomy, Hx Cholecystectomy, Hx Hysterectomy, Hx Orthopedic Surgery - right knee - Immunizations Immunizations up to date: No Hx Diphtheria, Pertussis, Tetanus Vaccination: Yes Review of Systems - Review of Systems Constitutional: No symptoms reported EENT: No symptoms reported Cardiovascular: No symptoms reported Respiratory: No symptoms reported Gastrointestinal: Nausea, Vomiting Genitourinary: No symptoms reported Female Genitourinary: No symptoms reported Musculoskeletal: No symptoms reported Skin: No symptoms reported Neurological/Psychological: No symptoms reported -: Yes All other systems reviewed and negative Physical Exam - Vital signs Vitals: BP Pulse Ox 187/89 H 90 L 08/15/17 08:18 08/15/17 08:18 - Notes Notes: PHYSICAL EXAMINATION: GENERAL: Well-appearing, well-nourished and in no acute distress. HEAD: Atraumatic, normocephalic. EYES: Pupils equal round and reactive to light, extraocular movements intact, conjunctiva are normal. ENT: Nares patent, oropharynx clear without exudates. Moist mucous membranes. NECK: Normal range of motion, supple without lymphadenopathy LUNGS: Breath sounds clear to auscultation bilaterally and equal. No wheezes rales or rhonchi. HEART: Regular rate and rhythm without murmurs ABDOMEN: Soft, nontender, nondistended abdomen. No guarding, no rebound. No masses appreciated. Female : deferred Musculoskeletal: Normal range of motion, no pitting or edema. No cyanosis. NEUROLOGICAL: Cranial nerves grossly intact. Normal speech, normal gait. Normal sensory, motor exams PSYCH: Normal mood, normal affect. SKIN: Warm, Dry, normal turgor, no rashes or lesions noted. Course - Re-evaluation Re-evalutation: 08/15/17 08:33 NIH stroke score of 0. Patient incontinent of urine on arrival. Past history of urinary tract infection. Patient AOx2. Patient knows where she's at and the year. Will not tell me her name. I tried to contact family to get additional history but no one answered. 08/15/17 09:53 Labs obtained. WBC normal. UA is normal. Chest xray does not show an acute process. Patient's oxygen saturation was at 89% on arrival per EMS. Patient not on home O2 per EMS. Does have a history of COPD. Will take the patient off oxygen and reassess. 08/15/17 10:31 Patient's vitals have been stable. Patient is sating at 94% on RA. BP has decreased to 165/73. I contacted Dr. March to discuss admission vs discharge home as the patient is AOx2 and I cannot get ahold of her family to discuss normal baseline status. He feels this is due to the patient's psychiatric history. He reviewed the labs and imaging done. He recommends discharge home with outpatient follow up. 08/15/17 10:38 EMS reported patient out of hypertensive medications for 3 days. I will write for 1 week of medication. Patient to follow up with primary care physician for re-evaluation and further rx. - Vital Signs Vital signs: Temp Pulse Resp BP Pulse Ox 16 160/75 H 98 08/15/17 08:31 08/15/17 10:02 08/15/17 08:39 - Laboratory Result Diagrams: 08/15/17 08:50 08/15/17 08:50 Laboratory results interpreted by me: 08/15/17 08/15/17 08/15/17 08:35 08:50 08:50 WBC 10.8 H RBC 5.55 H Hgb 16.1 H Hct 47.1 H RDW 14.5 H Seg Neutrophils % 84.5 H Lymphocytes % 9.8 L Absolute Neutrophils 9.2 H Glucose 249 H Urine Glucose (UA) >=500 H Urine Ketones TRACE H Urine Urobilinogen 2.0 H - EKG Interpretation by Me Additional EKG results interpreted by me: 08/15/17 08:34 EKG: Ventricular rate 73, IN interval 180, QRS duration 104, QTc 476, sinus rhythm. EKG is similar to 07/01/17. Discharge - Discharge Clinical Impression: Hypertension Qualifiers: Hypertension type: unspecified Qualified Code(s): I10 - Essential (primary) hypertension Condition: Stable Disposition: HOME, SELF-CARE Instructions: High Blood Pressure ([facility]) Prescriptions: Carvedilol 12.5 mg PO BID #14 tablet Lisinopril 10 mg PO DAILY #7 tablet Referrals: MARISSA YANG MD [Primary Care Provider] - Follow up as needed
[2017-08-15 08:57] LABS: APPEARANCE,URINE CLEAR; BILIRUBIN,URINE NEGATIVE (NEGATIVE); COLOR,URINE YELLOW; GLUCOSE, URINE >=500 mg/dL (NEGATIVE); KETONES,URINE TRACE mg/dL (NEGATIVE); LEUKOCYTE ESTERASE,URINE NEGATIVE (NEGATIVE); NITRITE,URINE NEGATIVE (NEGATIVE); PROTEIN,URINE NEGATIVE (NEGATIVE); URINE SPECIFIC GRAVITY 1.013
[2017-08-15 09:03] LABS: ABSOLUTE BASOPHILS # (AUTO) 0.1 10^3/uL (0.0-0.2); ABSOLUTE EOSINOPHILS # (AUTO) 0.1 10^3/uL (0.0-0.6); ABSOLUTE LYMPHOCYTES (AUTO) 1.1 10^3/uL (0.5-4.7); ABSOLUTE MONOCYTES (AUTO) 0.4 10^3/uL (0.1-1.4); ABSOLUTE NEUT (AUTO) 9.2 10^3/uL (1.7-8.2); BASOPHILS % (AUTO) 0.6 % (0-2); EOSINOPHILS % (AUTO) 1.2 % (0-6); HEMATOCRIT 47.1 % (36.0-47.0); HEMOGLOBIN 16.1 g/dL (12.0-15.5); LYMPHOCYTES % (AUTO) 9.8 % (13-45); MEAN CORPUSCULAR HEMOGLOBIN 28.9 pg (27.0-33.4); MEAN CORPUSCULAR HGB CONC 34.1 g/dL (32.0-36.0); MEAN CORPUSCULAR VOLUME 85 fl (80-97); MONOCYTES % (AUTO) 3.9 % (3-13); RED BLOOD COUNT 5.55 10^6/uL (3.72-5.28); RED CELL DISTRIBUTION WIDTH 14.5 % (11.5-14.0); SEGMENTED NEUTROPHILS % (AUTO) 84.5 % (42-78); TOTAL CELLS COUNTED % (AUTO) 100 %; WHITE BLOOD COUNT 10.8 10^3/uL (4.0-10.5)
--- NOTE | 2017-08-15 09:13 | RADIOLOGY REPORT (SQ) ---
EXAM DESCRIPTION: CHEST SINGLE VIEW COMPLETED DATE/TIME: 08/15/2017 8:35 am REASON FOR STUDY: hypoxia COMPARISON: AP chest 12/14/2016, 06/16/2008 EXAM PARAMETERS: NUMBER OF VIEWS: One view. TECHNIQUE: Single frontal radiographic view of the chest acquired. RADIATION DOSE: NA LIMITATIONS: None. FINDINGS: LUNGS AND PLEURA: No opacities, masses or pneumothorax. No pleural effusion. MEDIASTINUM AND HILAR STRUCTURES: No masses. Contour normal. HEART AND VASCULAR STRUCTURES: Borderline cardiomegaly BONES: No acute findings. HARDWARE: None in the chest. OTHER: No other significant finding. IMPRESSION: No acute infiltrates. TECHNICAL DOCUMENTATION: JOB ID: [id number] [employer]- All Rights Reserved Reading location - IP/workstation name: [email or web address]
--- NOTE | 2017-08-15 09:17 | RADIOLOGY REPORT (SQ) ---
EXAM DESCRIPTION: CT HEAD WITHOUT COMPLETED DATE/TIME: 08/15/2017 9:08 am REASON FOR STUDY: ams COMPARISON: CT brain 07/01/2017 TECHNIQUE: Axial images acquired through the brain without intravenous contrast. Images reviewed wi th bone, brain and subdural windows. Additional sagittal and coronal reconstructions were generated. Images stored on PACS. All CT scanners at this facility use dose modulation, iterative reconstruction, and/or weight based d osing when appropriate to reduce radiation dose to as low as reasonably achievable (ALARA). [facility]: Dose Right [facility]: CareDose [facility]: Dose Right [facility]: Teradose 4D [facility]: Smart [place] RADIATION DOSE: CT Rad equipment meets quality standard of care and radiation dose reduction techniq ues were employed. CTDIvol: 53.2 mGy. DLP: 964 mGy-cm. mGy. LIMITATIONS: Mild motion artifact FINDINGS: VENTRICLES: Normal size and contour. CEREBRUM: No masses. No hemorrhage. No midline shift. No evidence for acute infarction. Few stable scattered areas of low density in the white matter most likely chronic small vessel ischemic changes . CEREBELLUM: No masses. No hemorrhage. No alteration of density. No evidence for acute infarction. EXTRAAXIAL SPACES: No fluid collections. No masses. ORBITS AND GLOBE: No intra- or extraconal masses. Normal contour of globe without masses. CALVARIUM: No fracture. Old right mastoidectomy defect PARANASAL SINUSES: No fluid or mucosal thickening. SOFT TISSUES: No mass or hematoma. OTHER: No other significant finding. IMPRESSION: Motion artifact. No acute findings. Minimal white matter disease. EVIDENCE OF ACUTE STROKE: NO. COMMENT: Quality ID # [id number]: Final reports with documentation of one or more dose reduction techniques (e.g., Automated exposure control, adjustment of the mA and/or kV according to patient size, use of iterative reconstruction technique) TECHNICAL DOCUMENTATION: JOB ID: [id number] [employer]- All Rights Reserved Reading location - IP/workstation name: [email or web address]
[2017-08-15 09:20] LABS: ALANINE AMINOTRANSFERASE 20 U/L (9-52); ALBUMIN 4.1 g/dL (3.5-5.0); ALKALINE PHOSPHATASE 78 U/L (38-126); ANION GAP 12 (5-19); ASPARTATE AMINO TRANSFERASE 15 U/L (14-36); BILIRUBIN,DIRECT 0.4 mg/dL (0.0-0.4); BILIRUBIN,TOTAL 0.9 mg/dL (0.2-1.3); BLOOD UREA NITROGEN 15 mg/dL (7-20); CALCIUM 9.3 mg/dL (8.4-10.2); CARBON DIOXIDE 28 mmol/L (22-30); CHLORIDE 101 mmol/L (98-107); GLUCOSE 249 mg/dL (75-110); POTASSIUM 4.1 mmol/L (3.6-5.0); SODIUM 141.2 mmol/L (137-145)
[2017-08-15 09:21] LABS: TOTAL PROTEIN 7.5 g/dL (6.3-8.2)
[2017-08-15 09:29] LABS: PLATELET COUNT 159 10^3/uL (150-450)
--- NOTE | 2017-08-15 10:28 | EKG REPORT ---
SEVERITY:- ABNORMAL ECG - SINUS RHYTHM CONSIDER ANTEROSEPTAL INFARCT : Confirmed by: Rey Marques MD 15-Aug-2017 10:28:10
[2017-08-15 12:04] VITALS: BP 148/78
== END 2017-08-15 12:05 | disposition home or self-care (01) ==
LOC: ER 08:10
DX: I10 Essential (primary) hypertension (principal); Z91.138 Patient's unintentional underdosing of medication regimen for other reason; R32 Unspecified urinary incontinence; J44.9 Chronic obstructive pulmonary disease, unspecified; E11.9 Type 2 diabetes mellitus without complications; F17.200 Nicotine dependence, unspecified, uncomplicated
CPT/HCPCS: 36415; 51701; 70450; 71045; 80053; 81001; 85025; 93005; 93010; 99284

== ENCOUNTER 2018-08-01 11:45 | Observation (INO) | payer MEDICARE ==
--- NOTE | 2018-08-01 12:04 | ER Document Report ---
ED Medical Screen (RME) - General Chief Complaint: Altered Mental Status Stated Complaint: ALTERED MENTAL STATUS Time Seen by Provider: 08/01/18 11:57 Primary Care Provider: MARISSA YANG MD [Primary Care Provider] - Follow up as needed TRAVEL OUTSIDE OF THE [place] IN LAST 30 DAYS: No - HPI Notes: 08/01/18 12:01 Patient is a 63-year-old female with a history of hypertension, COPD, diabetes, anxiety/depression who presents with her son for ongoing behavioral and altered mental status over the past year. Son states that she has lived in multiple locations over the past year, but they could not handle her a year ago and she went to live with her family members. 2 days ago she was dropped off at the front door step and son states that they cannot handle her and want her evaluated here. No SI/HI. No visual or auditory hallucinations. Son states that she will be confused at times and not know "when to use the bathroom." Son states that this is nothing new and has been an ongoing thing for a long time. No recent illness. She is still eating and drinking without difficulty. She is urinating normally and having normal bowel movements. Denies WALLACE, fever, neck pain, URI, CP, SOB, Abd pain, dysuria, back pain, or rash. I have treated and performed a rapid initial assessment of this patient. A comprehensive ED assessment and evaluation of the patient, analysis of test results and completion of medical decision making process will be conducted by additional ED providers. PHYSICAL EXAMINATION: GENERAL: Well-appearing, well-nourished and in no acute distress. A&O. Answers questions appropriately. LUNGS: Breath sounds clear to auscultation bilaterally and equal. No wheezes rales or rhonchi. HEART: Regular rate and rhythm without murmurs, rubs, gallops. Extremities: No cyanosis, clubbing, or edema b/l. NEUROLOGICAL: Normal speech. cranial nerves grossly intact. PSYCH: Normal mood, normal affect. - Related Data Allergies/Adverse Reactions: latex Allergy (Verified 08/01/18 11:47) morphine Adverse Reaction (Mild, Verified 08/01/18 11:47) Past Medical History - Past Medical History Cardiac Medical History: Reports: Hx Hypertension Pulmonary Medical History: Reports: Hx COPD Endocrine Medical History: Reports: Hx Diabetes Mellitus Type 2 Renal/ Medical History: Denies: Hx Peritoneal Dialysis Psychiatric Medical History: Reports: Hx Anxiety, Hx Depression Infectious Medical History: Reports: Hx C-Diff Past Surgical History: Reports: Hx Appendectomy, Hx Cholecystectomy, Hx Hysterectomy, Hx Orthopedic Surgery - right knee - Immunizations Immunizations up to date: No Hx Diphtheria, Pertussis, Tetanus Vaccination: Yes History of Influenza Vaccine for 11/2016 - 04/2017 Season: No Physical Exam - Vital signs Vitals: Temp Pulse Resp BP Pulse Ox 97.9 F 92 18 157/79 H 90 L 08/01/18 11:48 08/01/18 11:48 08/01/18 11:48 08/01/18 11:48 08/01/18 11:48 Course - Vital Signs Vital signs: Temp Pulse Resp BP Pulse Ox 97.9 F 92 18 157/79 H 90 L 08/01/18 11:48 08/01/18 11:48 08/01/18 11:48 08/01/18 11:48 08/01/18 11:48 Doctor's Discharge - Discharge Referrals: MARISSA YANG MD [Primary Care Provider] - Follow up as needed
--- NOTE | 2018-08-01 13:14 | RADIOLOGY REPORT (SQ) ---
EXAM DESCRIPTION: CHEST SINGLE VIEW COMPLETED DATE/TIME: 08/01/2018 1:05 pm REASON FOR STUDY: copd COMPARISON: 06/16/2008 EXAM PARAMETERS: NUMBER OF VIEWS: One view. TECHNIQUE: Single frontal radiographic view of the chest acquired. RADIATION DOSE: NA LIMITATIONS: None. FINDINGS: LUNGS AND PLEURA: No opacities, masses or pneumothorax. No pleural effusion. MEDIASTINUM AND HILAR STRUCTURES: No masses. Contour normal. HEART AND VASCULAR STRUCTURES: Heart normal in size. Normal vasculature. BONES: No acute findings. HARDWARE: None in the chest. OTHER: No other significant finding. IMPRESSION: NO ACUTE RADIOGRAPHIC FINDING IN THE CHEST. TECHNICAL DOCUMENTATION: JOB ID: [id number] [employer]- All Rights Reserved Reading location - IP/workstation name: [email or web address]
--- NOTE | 2018-08-01 13:20 | PSYCHOLOGICAL NOTE ---
Psych Note - Psych Note Date seen by psych provider: 08/01/18 Time seen by psych provider: 12:52 Psych Note: Presenting Problem: Son brought patient in for increased confusion, no memory of things (not knowing where the restroom is or when to use the restroom), incontin ence and not tending to her medical issues (not using Oxygen for COPD and not checking blood sugar/taking medication). Son noted she had been staying with other family for the past year and yesterday patient was dropped of at his home. Patient was seen by behavioral health 12/14/16 for depression and SI, had stopped taking medications, was started on Zyprexa by medical and went inpatient to [facility] for mental health. She was seen by behavioral health on 12/08/15 after patient/daughter/daughter's children/children's their father moved back to [place] from [place] that April, patient had resided with them for 8 years, they had social issues, she had increased depression and SI she was discharged and provided with [facility] as well as mobile crisis numbers. Head CT dated 08/15/17 had language consistent with mild neurodegenerative processes. Diagnosis: 311 (F32.9) Unspecified Depressive Disorder R/O 799.59 (R41.9) Unspecified Neurocognitive Disorder Medication recommendations made by the psychiatric medical provider, Dr. Ruben MD., includes: Add Depakote DR 250MG twice a day for mood stabilization Add Buspar 5MG twice a day for anxiety/calming effect/depression/sleep Impression/Plan: Recommendation to hold overnight for observation and start of medication regimen. Request Social Work Consult given [facility] appears to be needed. Consulted with Bacilio Estrada regarding the management and care of patient.
--- NOTE | 2018-08-01 13:40 | ER Document Report ---
ED General - General Chief Complaint: Altered Mental Status Stated Complaint: ALTERED MENTAL STATUS Time Seen by Provider: 08/01/18 11:57 Notes: She is a 63-year-old female history of hypertension, COPD, diabetes, anxiety and depression who presents to the emergency department with a chief complaint of altered mental status. Upon initial assessment by myself the family was not at the bedside for questioning. Patient states that she lives with her mother and his and asked them to bring her here because she did not feel good. Patien t states she has had intermittent headaches. Patient denies urinary symptoms. Patient states she did have one episode of diarrhea today. She denies any other complaints at this time. TRAVEL OUTSIDE OF THE [place] IN LAST 30 DAYS: No - Related Data Allergies/Adverse Reactions: latex Allergy (Verified 08/01/18 11:47) morphine Adverse Reaction (Mild, Verified 08/01/18 11:47) Past Medical History - General Information source: Patient - Social History Smoking Status: Current Every Day Smoker Chew tobacco use (# tins/day): No Frequency of alcohol use: None Drug Abuse: None Family History: None Patient has suicidal ideation: No Patient has homicidal ideation: No - Past Medical History Cardiac Medical History: Reports: Hx Hypertension Pulmonary Medical History: Reports: Hx COPD EENT Medical History: Reports: None Neurological Medical History: Reports: None Endocrine Medical History: Reports: Hx Diabetes Mellitus Type 2 Renal/ Medical History: Reports: None. Denies: Hx Peritoneal Dialysis Malignancy Medical History: Reports: None GI Medical History: Reports: None Musculoskeletal Medical History: Reports None Skin Medical History: Reports None Psychiatric Medical History: Reports: Hx Anxiety, Hx Depression Traumatic Medical History: Reports: None Infectious Medical History: Reports: Hx C-Diff Past Surgical History: Reports: Hx Appendectomy, Hx Cholecystectomy, Hx Hysterectomy, Hx Orthopedic Surgery - right knee - Immunizations Immunizations up to date: No Hx Diphtheria, Pertussis, Tetanus Vaccination: Yes Review of Systems - Review of Systems Constitutional: No symptoms reported EENT: No symptoms reported Cardiovascular: No symptoms reported Respiratory: No symptoms reported Gastrointestinal: See HPI Genitourinary: No symptoms reported Female Genitourinary: No symptoms reported Musculoskeletal: No symptoms reported Skin: No symptoms reported Hematologic/Lymphatic: No symptoms reported Neurological/Psychological: No symptoms reported Physical Exam - Vital signs Vitals: Temp Pulse Resp BP Pulse Ox 97.9 F 92 18 157/79 H 90 L 08/01/18 11:48 08/01/18 11:48 08/01/18 11:48 08/01/18 11:48 08/01/18 11:48 Interpretation: Hypertensive, Hypoxic - Notes Notes: GENERAL: Well-appearing, no acute distress, flat affect HEAD: Atraumatic, normocephalic. EYES: Pupils equal round and reactive to light, extraocular movements intact, sclera anicteric, conjunctiva are normal. ENT: Nares patent, oropharynx clear without exudates. Moist mucous membranes. NECK: Normal range of motion, supple without lymphadenopathy or JVD. LUNGS: Breath sounds clear to auscultation bilaterally and equal. No wheezes rales or rhonchi. HEART: Regular rate and rhythm without murmurs, rubs or gallops. ABDOMEN: Soft, nontender, hyperactive bowel sounds. No guarding, no rebound. No masses appreciated. BACK: No cervical, thoracic, lumbar midline tenderness. No saddle anesthesia, normal distal neurovascular exam. GENITOURINARY: Deferred. EXTREMITIES: Limited ROM to RLE from previous surgery, no pitting or edema. No clubbing or cyanosis. NEUROLOGICAL: Flat affect, slow to answer questions. Oriented to place and self. PSYCH: Flat affect. SKIN: Warm, Dry, normal turgor, no rashes or lesions noted. Face symmetric. Tongue protrudes midline. Extraocular motions intact. Pupils are 2 mm and equally reactive. Normal speech, have no tested gait. 5 out of 5 strength in both the distal and proximal upper and lower extremities bilaterally. Sensation is grossly intact throughout. Finger to nose testing normal. Pronator drift normal. Course - Re-evaluation Re-evalutation: 08/01/18 15:23 I did speak with the fcfdlert-wr-sec who is at bedside. The exofawcb-ja-ztg states that family from [place] brought to the patient to their house yesterday and stated that they were unable to take care of her head the xhnjdiac-jf-veg states that she is concerned because they had 5 children and they cannot take care of her, as both her and her work full-time jobs. She states that last year the patient did have a stroke and since then she has acted spaced out. The glmeomtg-by-ykh states that how she is acting currently in the emergency department with the flat affect and blank scare is her normal as of one year ago. Per the axopzvvb-lg-ced she is unsure if she has been on any medication but she has been on her insulin. The hfcafwfk-gq-ydu stated she did have to remind the patient to take her insulin last night. The family is concerned that the patient is unable to take care of herself and they want to speak with someone regarding options. 08/01/18 15:51 Social work at the bedside speaking with pvtyqlwk-pf-gnk. Patient is resting comfortably on stretcher, breathing is even and unlabored. Patient is incontinent as reported by the hvtptclc-io-ues. Will obtain a in and out cath to obtain a urine specimen. 08/01/18 17:06 It was noted that the patient had a urinary tract infection. Bvbfdsxc-hu-bgv is at the bedside who states she has not been acting quite right for about a year since she had a stroke but seems a little more off than normal. It does appear in the computer that the patient used to see Dr. Malik. I did speak with Dr. March who is covering for King who would like me to admit to the hospitalist service as the patient has been living out of state since last September and is unsure of the last time King saw the patient. I did call and speak with Dr. Wynn for hospitalist admission. Dr. Taylor to admit and come see patient in the ER. Patient is stable at this time and in no acute distress. I did update the daughter in law. - Vital Signs Vital signs: Temp Pulse Resp BP Pulse Ox 98.3 F 75 18 144/60 H 91 L 08/01/18 17:48 08/01/18 17:48 08/01/18 17:48 08/01/18 17:48 08/01/18 17:48 - Laboratory Result Diagrams: 08/01/18 14:38 08/01/18 14:38 Laboratory results interpreted by me: 08/01/18 08/01/18 08/01/18 14:38 14:38 16:04 RBC 5.52 H Hgb 15.6 H RDW 14.9 H BUN 24 H Glucose 222 H AST 12 L Urine Nitrite POSITIVE H Ur Leukocyte Esterase SMALL H Salicylates < 1.0 L Acetaminophen < 10 L Discharge - Discharge Clinical Impression: Tobacco dependence COPD (chronic obstructive pulmonary disease) Qualifiers: COPD type: unspecified COPD Qualified Code(s): J44.9 - Chronic obstructive pulmonary disease, unspecified Diabetes Qualifiers: Diabetes mellitus type: type 2 Diabetes mellitus care 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
[2018-08-01 14:48] LABS: ABSOLUTE BASOPHILS # (AUTO) 0.1 10^3/uL (0.0-0.2); ABSOLUTE EOSINOPHILS # (AUTO) 0.1 10^3/uL (0.0-0.6); ABSOLUTE LYMPHOCYTES (AUTO) 1.2 10^3/uL (0.5-4.7); ABSOLUTE MONOCYTES (AUTO) 0.6 10^3/uL (0.1-1.4); ABSOLUTE NEUT (AUTO) 5.9 10^3/uL (1.7-8.2); BASOPHILS % (AUTO) 1.2 % (0-2); EOSINOPHILS % (AUTO) 1.7 % (0-6); HEMATOCRIT 46.1 % (36.0-47.0); HEMOGLOBIN 15.6 g/dL (12.0-15.5); LYMPHOCYTES % (AUTO) 15.4 % (13-45); MEAN CORPUSCULAR HEMOGLOBIN 28.3 pg (27.0-33.4); MEAN CORPUSCULAR HGB CONC 33.8 g/dL (32.0-36.0); MEAN CORPUSCULAR VOLUME 84 fl (80-97); MONOCYTES % (AUTO) 7.4 % (3-13); PLATELET COUNT 203 10^3/uL (150-450); RED BLOOD COUNT 5.52 10^6/uL (3.72-5.28); RED CELL DISTRIBUTION WIDTH 14.9 % (11.5-14.0); SEGMENTED NEUTROPHILS % (AUTO) 74.3 % (42-78); TOTAL CELLS COUNTED % (AUTO) 100 %; WHITE BLOOD COUNT 7.9 10^3/uL (4.0-10.5)
[2018-08-01 15:05] LABS: ALANINE AMINOTRANSFERASE 17 U/L (9-52); ALBUMIN 3.5 g/dL (3.5-5.0); ALKALINE PHOSPHATASE 83 U/L (38-126); ANION GAP 6 (5-19); ASPARTATE AMINO TRANSFERASE 12 U/L (14-36); BILIRUBIN,DIRECT 0.2 mg/dL (0.0-0.4); BILIRUBIN,TOTAL 0.5 mg/dL (0.2-1.3); BLOOD UREA NITROGEN 24 mg/dL (7-20); CALCIUM 9.3 mg/dL (8.4-10.2); CARBON DIOXIDE 29 mmol/L (22-30); CHLORIDE 103 mmol/L (98-107); GLUCOSE 222 mg/dL (75-110); POTASSIUM 4.2 mmol/L (3.6-5.0); SODIUM 138.1 mmol/L (137-145); TOTAL PROTEIN 6.6 g/dL (6.3-8.2)
[2018-08-01 15:06] LABS: ACETAMINOPHEN < 10 ug/mL (10-30); ALCOHOL < 10 mg/dL (NONE DETECTED); SALICYLATE < 1.0 mg/dL (2.0-20.0)
[2018-08-01 16:33] LABS: APPEARANCE,URINE SLIGHTLY-CLOUDY; BILIRUBIN,URINE NEGATIVE (NEGATIVE); COLOR,URINE YELLOW; GLUCOSE, URINE NEGATIVE (NEGATIVE); KETONES,URINE NEGATIVE (NEGATIVE); LEUKOCYTE ESTERASE,URINE SMALL (NEGATIVE); NITRITE,URINE POSITIVE (NEGATIVE); PROTEIN,URINE NEGATIVE (NEGATIVE); URINE SPECIFIC GRAVITY 1.023; UROBILINOGEN,URINE NEGATIVE mg/dL (<2.0)
[2018-08-01 16:44] LABS: URINE AMPHETAMINES SCREEN NEGATIVE; URINE BARBITURATES SCREEN NEGATIVE; URINE BENZODIAZEPINES SCREEN NEGATIVE; URINE COCAINE SCREEN NEGATIVE; URINE MARIJUANA (THC) SCREEN NEGATIVE; URINE METHADONE SCREEN NEGATIVE; URINE PHENCYCLIDINE SCREEN NEGATIVE
[2018-08-01] MEDS ORDERED: NORMAL SALINE 1000 ML 1,000 ML IV ONE (17:17)
[2018-08-01] MEDS ORDERED: CEFTRIAXONE 1 GM/D5W RTU 1 GM/50 ML RTUPB IV ONE (17:17)
--- NOTE | 2018-08-01 18:07 | PDOC H&P ---
History of Present Illness Admission Date/PCP: MARISSA YANG MD History of Present Illness: RODNEY GALEANA is a 63 year old female past medical history of CVA (bilateral frontal and right parietal regions in 2018), hypertension, diabetes, bilateral knee surgeries, depression, tobacco abuse. Post CVA patient moved to [place] to live with family and recently moved to [place] but about 3 days ago patient was dropped off at the youngest son's doorstep. As per family patient seemed to not act like herself home and seemed altered. Patient herself stating that she is feeling weird but does not provide much detail. She is alert and oriented x3, endorsing urgency and polyuria and anorexia. She denies any shortness of breath, fever, chest pain, nausea, vomiting, diarrhea or constipation. In ED she was found to have UTI as per UA otherwise work-up is benign except for hemoglobin of 15.6, BUN 24 which could be due to hemoconcentration. Family wants help to get her transferred to rehab after this hospitalization. Discharge planning has evaluated the patient. Please refer to their note. Past Medical History Cardiac Medical History: Reports: Hypertension Pulmonary Medical History: Reports: Chronic Obstructive Pulmonary Disease (COPD) EENT Medical History: Reports: None Neurological Medical History: Reports: None Endocrine Medical History: Reports: Diabetes Mellitus Type 2 Renal/ Medical History: Reports: None Malignancy Medical History: Reports: None GI Medical History: Reports: None Musculoskeltal Medical History: Reports: None Skin Medical History: Reports: None Psychiatric Medical History: Reports: Depression Traumatic Medical History: Reports: None Infectious Medical History: Reports: Clostridium Difficile Past Surgical History Past Surgical History: Reports: Appendectomy, Cholecystectomy, Hysterectomy, Orthopedic Surgery - right knee Social History Smoking Status: Current Every Day Smoker Frequency of Alcohol Use: Social Drugs: Heroin Family History Family History: None Parental Family History Reviewed: Yes Children Family History Reviewed: Yes Sibling(s) Family History Reviewed.: Yes Medication/Allergy Allergies/Adverse Reactions: latex Allergy (Verified 08/01/18 11:47) morphine Adverse Reaction (Mild, Verified 08/01/18 11:47) Review of Systems Review of Systems: as per hpi Physical Exam Vital Signs: Temp Pulse Resp BP Pulse Ox 98.3 F 75 18 144/60 H 91 L 08/01/18 17:48 08/01/18 17:48 08/01/18 17:48 08/01/18 17:48 08/01/18 17:48 Intake & Output 07/31/18 08/01/18 08/02/18 06:59 06:59 06:59 Weight 66.7 kg General appearance: PRESENT: no acute distress, well-developed, well-nourished Head exam: PRESENT: atraumatic, normocephalic Respiratory exam: PRESENT: clear to auscultation radha. ABSENT: rales, rhonchi, wheezes Cardiovascular exam: PRESENT: RRR. ABSENT: diastolic murmur, rubs, systolic murmur Pulses: PRESENT: normal dorsalis pedis pul GI/Abdominal exam: PRESENT: normal bowel sounds, soft. ABSENT: distended, guarding, mass, organolmegaly, rebound, tenderness Extremities exam: PRESENT: full ROM. ABSENT: calf tenderness, clubbing, pedal edema Neurological exam: PRESENT: alert, awake, oriented to person, oriented to place, oriented to time, CN II-XII grossly intact, motor sensory deficit - generalized weaknes. no focal weakness. Results Laboratory Results: 08/01/18 14:38 08/01/18 14:38 08/01/18 08/01/18 08/01/18 14:38 14:38 16:04 WBC 7.9 RBC 5.52 H Hgb 15.6 H Hct 46.1 MCV 84 MCH 28.3 MCHC 33.8 RDW 14.9 H Plt Count 203 Seg Neutrophils % 74.3 Lymphocytes % 15.4 Monocytes % 7.4 Eosinophils % 1.7 Basophils % 1.2 Absolute Neutrophils 5.9 Absolute Lymphocytes 1.2 Absolute Monocytes 0.6 Absolute Eosinophils 0.1 Absolute Basophils 0.1 Sodium 138.1 Potassium 4.2 Chloride 103 Carbon Dioxide 29 Anion Gap 6 BUN 24 H Creatinine 0.65 Est GFR ( Amer) > 60 Est GFR (Non-Af Amer) > 60 Glucose 222 H Calcium 9.3 Total Bilirubin 0.5 AST 12 L ALT 17 Alkaline Phosphatase 83 Total Protein 6.6 Albumin 3.5 Urine Color YELLOW Urine Appearance SLIGHTLY-CLOUDY Urine pH 5.0 Ur Specific [place] 1.023 Urine Protein NEGATIVE Urine Glucose (UA) NEGATIVE Urine Ketones NEGATIVE Urine Blood NEGATIVE Urine Nitrite POSITIVE H Ur Leukocyte Esterase SMALL H Urine WBC (Auto) 11 Urine RBC (Auto) 1 Impressions: Chest X-Ray 08/01/18 12:01 IMPRESSION: NO ACUTE RADIOGRAPHIC FINDING IN THE CHEST. Assessment and Plan - Diagnosis (1) Metabolic encephalopathy Is this a current diagnosis for this admission?: Yes Plan: Likely due to underlying UTI. Urine and blood culture. Empiric IV antibiotics. Follow-up urine culture. (2) Urinary tract infection Qualifiers: Urinary tract infection type: site unspecified Hematuria presence: without hematuria Qualified Code(s): N39.0 - Urinary tract infection, site not specified Is this a current diagnosis for this admission?: Yes Plan: Likely due to gram-negative rods including E. coli. Empiric IV antibiotics. Follow-up urine culture. (3) History of CVA (cerebrovascular accident) Is this a current diagnosis for this admission?: Yes Plan: Antiplatelets, high intensity statins, following seizure precautions, PT OT. Optimize blood pressure control and diabetes. (4) Physical deconditioning Is this a current diagnosis for this admission?: Yes Plan: Likely due to underlying CVA and bilateral knees multiple surgeries. PT/OT. Assess nutritional status. 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 Adjust meds as needed. (6) Dehydration Is this a current diagnosis for this admission?: Yes Plan: Volume resuscitation guided by volume status. (7) Tobacco dependence Is this a current diagnosis for this admission?: Yes Plan: Consult on quitting. NicoDerm patch.
[2018-08-01] MEDS ORDERED: OXYCODONE-ACETAMINOPHEN 5-325 MG TABLET PO PRN (18:14)
[2018-08-01] MEDS ORDERED: ACETAMINOPHEN 325 MG TABLET PO PRN (18:14)
[2018-08-01] MEDS ORDERED: TEMAZEPAM 15 MG CAPSULE PO PRN (18:14)
[2018-08-01] MEDS ORDERED: PROMETHAZINE HCL INJ 25 MG/1 ML VIAL IV PRN (18:14)
[2018-08-01] MEDS ORDERED: DEXTROSE 50%-WATER 25 GM/50 ML DISP.SYRIN IV PRN ×2 (18:23)
[2018-08-01] MEDS ORDERED: DEXTROSE 40% GEL 15 GM TUBE PO PRN ×2 (18:23)
[2018-08-01] MEDS ORDERED: GLUCAGON,HUMAN RECOMB 1 MG INJ IM PRN (18:23)
[2018-08-01] MEDS ORDERED: NICOTINE 7 MG/24 HR PATCH.TD24 TD ONE ×2 (18:26→20:45)
--- NOTE | 2018-08-01 18:39 | EKG REPORT ---
SEVERITY:- OTHERWISE NORMAL ECG - SINUS RHYTHM RIGHT AXIS DEVIATION : Confirmed by: Yudelka Noble MD 01-Aug-2018 18:38:35
--- NOTE | 2018-08-01 19:20 | RADIOLOGY REPORT (SQ) ---
EXAM DESCRIPTION: CT HEAD WITHOUT COMPLETED DATE/TIME: 08/01/2018 7:06 pm REASON FOR STUDY: AMS COMPARISON: 08/15/2017 TECHNIQUE: Axial images acquired through the brain without intravenous contrast. Images reviewed wi th bone, brain and subdural windows. Images stored on PACS. All CT scanners at this facility use dose modulation, iterative reconstruction, and/or weight based d osing when appropriate to reduce radiation dose to as low as reasonably achievable (ALARA). [facility]: Dose Right [facility]: CareDose [facility]: Dose Right [facility]: Teradose 4D [facility]: Smart [employer] RADIATION DOSE: CT Rad equipment meets quality standard of care and radiation dose reduction techniq ues were employed. CTDIvol: 53.2 mGy. DLP: 937 mGy-cm. mGy. LIMITATIONS: None. FINDINGS: VENTRICLES: Normal size and contour. CEREBRUM: No masses. No hemorrhage. No midline shift. No evidence for acute infarction. Age-approp riate white matter. CEREBELLUM: No masses. No hemorrhage. No alteration of density. No evidence for acute infarction. EXTRAAXIAL SPACES: No fluid collections. No masses. ORBITS AND GLOBE: No intra- or extraconal masses. Normal contour of globe without masses. CALVARIUM: No fracture. PARANASAL SINUSES: No fluid or mucosal thickening. SOFT TISSUES: No mass or hematoma. OTHER: Prior bilateral partial mastoidectomy. IMPRESSION: No acute intracranial findings. EVIDENCE OF ACUTE STROKE: NO. COMMENT: Quality ID # [id number]: Final reports with documentation of one or more dose reduction techniques (e.g., Automated exposure control, adjustment of the mA and/or kV according to patient size, use of iterative reconstruction technique) TECHNICAL DOCUMENTATION: JOB ID: [id number] [place]-72 2010 [employer]- All Rights Reserved Reading location - IP/workstation name: [employer]
[2018-08-01] MEDS: ASPIRIN 81 MG TABLET, CHEWABLE PO SCH (20:38)
[2018-08-01] MEDS: IPRATROPIUM/ALBUTEROL 0.5-2.5 MG/3 ML AMPUL NEB SCH (20:49)
[2018-08-01] MEDS: HEPARIN SOD (PORCINE) 5,000 UNIT/ML 1 ML SYRINGE SUBCUT SCH (21:22)
[2018-08-01] MEDS: FAMOTIDINE 20 MG TABLET PO SCH (21:22)
[2018-08-01] MEDS: INSULIN LISPRO 100 UNIT/ML 3 ML VIAL SUBCUT SCH (21:22)
[2018-08-01] MEDS: ATORVASTATIN CALCIUM 40 MG TABLET PO SCH (21:22)
[2018-08-02] MEDS: NORMAL SALINE 1000 ML 1,000 ML IV PRN ×3 (03:09→17:21)
[2018-08-02 04:54] LABS: ABSOLUTE BASOPHILS # (AUTO) 0.1 10^3/uL (0.0-0.2); ABSOLUTE EOSINOPHILS # (AUTO) 0.2 10^3/uL (0.0-0.6); ABSOLUTE LYMPHOCYTES (AUTO) 1.7 10^3/uL (0.5-4.7); ABSOLUTE MONOCYTES (AUTO) 0.5 10^3/uL (0.1-1.4); ABSOLUTE NEUT (AUTO) 4.4 10^3/uL (1.7-8.2); BASOPHILS % (AUTO) 0.9 % (0-2); EOSINOPHILS % (AUTO) 2.8 % (0-6); HEMATOCRIT 45.3 % (36.0-47.0); LYMPHOCYTES % (AUTO) 24.8 % (13-45); MEAN CORPUSCULAR HGB CONC 33.1 g/dL (32.0-36.0); MEAN CORPUSCULAR VOLUME 85 fl (80-97); MONOCYTES % (AUTO) 7.3 % (3-13); PLATELET COUNT 176 10^3/uL (150-450); RED BLOOD COUNT 5.36 10^6/uL (3.72-5.28); RED CELL DISTRIBUTION WIDTH 15.1 % (11.5-14.0); SEGMENTED NEUTROPHILS % (AUTO) 64.2 % (42-78); TOTAL CELLS COUNTED % (AUTO) 100 %; WHITE BLOOD COUNT 6.8 10^3/uL (4.0-10.5)
[2018-08-02 05:11] LABS: ANION GAP 7 (5-19); BLOOD UREA NITROGEN 26 mg/dL (7-20); CALCIUM 9.1 mg/dL (8.4-10.2); CARBON DIOXIDE 25 mmol/L (22-30); CHLORIDE 107 mmol/L (98-107); CHOLESTEROL 162.57 mg/dL (0-200); GLUCOSE 129 mg/dL (75-110); POTASSIUM 3.9 mmol/L (3.6-5.0); SODIUM 138.9 mmol/L (137-145); TRIGLYCERIDES 97 mg/dL (<150)
[2018-08-02 05:22] LABS: DIRECT LDL 84 mg/dL (<100)
[2018-08-02 05:25] LABS: FREE T3 3.68 pg/mL (2.77-5.27); FREE T4 (FREE THYROXINE) 1.4 ng/dL (0.78-2.19)
[2018-08-02 05:39] LABS: THYROID STIMULATING HORMONE 1.46 uIU/mL (0.47-4.68)
[2018-08-02] MEDS: HEPARIN SOD (PORCINE) 5,000 UNIT/ML 1 ML SYRINGE SUBCUT SCH ×3 (05:40→21:21)
[2018-08-02] MEDS: IPRATROPIUM/ALBUTEROL 0.5-2.5 MG/3 ML AMPUL NEB SCH ×3 (08:18→20:00)
[2018-08-02] MEDS: INSULIN LISPRO 100 UNIT/ML 3 ML VIAL SUBCUT SCH ×4 (08:48→21:24)
[2018-08-02] MEDS: FAMOTIDINE 20 MG TABLET PO SCH ×2 (09:10→21:21)
[2018-08-02] MEDS: ASPIRIN 81 MG TABLET, CHEWABLE PO SCH (09:10)
[2018-08-02] MEDS: LISINOPRIL 10 MG TABLET PO SCH (09:10)
[2018-08-02] MEDS ORDERED: CEFTRIAXONE 1 GM/D5W RTU 1 GM/50 ML RTUPB IV SCH (10:00)
[2018-08-02] MEDS: CEFTRIAXONE SODIUM 1,000 MG in DEXTROSE 5%-WATER 50 ML IV SCH (17:16)
[2018-08-02] MEDS: HYDRALAZINE HCL INJ/PF 20 MG/1 ML SDV IV PRN (20:25)
--- NOTE | 2018-08-02 21:15 | PDOC PROGRESS REPORT ---
Subjective Progress Note for:: 08/02/18 Subjective:: She has baseline cognitive impairment, she was admitted over the weekend for UTI she was initially admitted by the hospitalist, I saw her today by the bedside, she has no new complaint, she is on IV antibiotic for UTI, she has underlining COPD Reason For Visit: AMS, UTI, DEHYDRATION Physical Exam Vital Signs: Temp Pulse Resp BP Pulse Ox 98.4 F 81 20 155/77 H 94 08/02/18 20:19 08/02/18 20:19 08/02/18 20:19 08/02/18 20:19 08/02/18 20:19 Intake & Output 08/01/18 08/02/18 08/03/18 06:59 06:59 06:59 Intake Total 1050 2252 Output Total 100 400 Balance 950 1852 Weight 67.3 kg General appearance: PRESENT: no acute distress Eye exam: PRESENT: PERRLA Respiratory exam: PRESENT: clear to auscultation radha Cardiovascular exam: PRESENT: +S1, +S2 GI/Abdominal exam: PRESENT: soft Neurological exam: PRESENT: alert Results Laboratory Results: 08/02/18 04:32 08/02/18 04:32 08/02/18 08/02/18 08/02/18 04:32 04:32 04:32 WBC 6.8 RBC 5.36 H Hgb 15.0 Hct 45.3 MCV 85 MCH 28.0 MCHC 33.1 RDW 15.1 H Plt Count 176 Seg Neutrophils % 64.2 Lymphocytes % 24.8 Monocytes % 7.3 Eosinophils % 2.8 Basophils % 0.9 Absolute Neutrophils 4.4 Absolute Lymphocytes 1.7 Absolute Monocytes 0.5 Absolute Eosinophils 0.2 Absolute Basophils 0.1 Sodium 138.9 Potassium 3.9 Chloride 107 Carbon Dioxide 25 Anion Gap 7 BUN 26 H Creatinine 0.58 Est GFR ( Amer) > 60 Est GFR (Non-Af Amer) > 60 Glucose 129 H Calcium 9.1 Triglycerides 97 Cholesterol 162.57 LDL Cholesterol Direct 84 VLDL Cholesterol 19.0 HDL Cholesterol 60 TSH 1.46 Free T4 1.40 Free T3 pg/mL 3.68 Impressions: Chest X-Ray 08/01/18 12:01 IMPRESSION: NO ACUTE RADIOGRAPHIC FINDING IN THE CHEST. Head CT 08/01/18 18:25 IMPRESSION: No acute intracranial findings. EVIDENCE OF ACUTE STROKE: NO. Assessment & Plan - Diagnosis (1) Urinary tract infection Qualifiers: Urinary tract infection type: site unspecified Hematuria presence: without hematuria Qualified Code(s): N39.0 - Urinary tract infection, site not specified Is this a current diagnosis for this admission?: Yes Plan: Continue IV antibiotic (2) Metabolic encephalopathy Is this a current diagnosis for this admission?: Yes
[2018-08-02] MEDS: ATORVASTATIN CALCIUM 40 MG TABLET PO SCH (21:21)
[2018-08-03] MEDS: HYDRALAZINE HCL INJ/PF 20 MG/1 ML SDV IV PRN (01:20)
[2018-08-03] MEDS: NORMAL SALINE 1000 ML 1,000 ML IV PRN ×2 (02:25→13:20)
[2018-08-03] MEDS: HEPARIN SOD (PORCINE) 5,000 UNIT/ML 1 ML SYRINGE SUBCUT SCH ×3 (05:07→21:06)
[2018-08-03] MEDS: INSULIN LISPRO 100 UNIT/ML 3 ML VIAL SUBCUT SCH ×4 (08:38→21:06)
[2018-08-03] MEDS: IPRATROPIUM/ALBUTEROL 0.5-2.5 MG/3 ML AMPUL NEB SCH ×3 (08:49→21:14)
[2018-08-03] MEDS: ASPIRIN 81 MG TABLET, CHEWABLE PO SCH (09:15)
[2018-08-03] MEDS: LISINOPRIL 10 MG TABLET PO SCH (09:15)
[2018-08-03] MEDS: FAMOTIDINE 20 MG TABLET PO SCH ×2 (09:15→21:06)
[2018-08-03] MEDS: CEFTRIAXONE SODIUM 1,000 MG in DEXTROSE 5%-WATER 50 ML IV SCH (17:43)
--- NOTE | 2018-08-03 20:44 | PDOC PROGRESS REPORT ---
Subjective Progress Note for:: 08/03/18 Subjective:: Patient seen by the bedside, it seems that she has cognitive impairment she does not answer questions appropriately, she tends to give conflicting answers to questions, initially she said she was going home on discharge and then she said she was going to rehab, there is no family member to discuss with, when she was admitted no medications was reconciled on admission suggesting that she is on no medication but when I took care of the [facility] she was on bunch of medicines Reason For Visit: AMS, UTI, DEHYDRATION Physical Exam Vital Signs: Temp Pulse Resp BP Pulse Ox 98.2 F 73 16 155/72 H 94 08/03/18 16:15 08/03/18 19:00 08/03/18 16:15 08/03/18 16:15 08/03/18 16:15 Intake & Output 08/02/18 08/03/18 08/04/18 06:59 06:59 06:59 Intake Total 1050 3601 2105 Output Total 100 400 Balance 950 3201 2105 Weight 67.3 kg 71.9 kg General appearance: PRESENT: no acute distress Eye exam: PRESENT: PERRLA Respiratory exam: PRESENT: clear to auscultation radha Cardiovascular exam: PRESENT: +S1, +S2 GI/Abdominal exam: PRESENT: soft Results Laboratory Results: 08/02/18 04:32 08/02/18 04:32 08/01/18 16:04 Catheterized Urine Urine Culture - Final Klebsiella Pneumoniae Impressions: Chest X-Ray 08/01/18 12:01 IMPRESSION: NO ACUTE RADIOGRAPHIC FINDING IN THE CHEST. Head CT 08/01/18 18:25 IMPRESSION: No acute intracranial findings. EVIDENCE OF ACUTE STROKE: NO. Assessment & Plan - Diagnosis (1) Urinary tract infection Qualifiers: Urinary tract infection type: site unspecified Hematuria presence: without hematuria Qualified Code(s): N39.0 - Urinary tract infection, site not specified Is this a current diagnosis for this admission?: Yes (2) Metabolic encephalopathy Is this a current diagnosis for this admission?: Yes
[2018-08-03] MEDS: ATORVASTATIN CALCIUM 40 MG TABLET PO SCH (21:06)
[2018-08-04] MEDS: NORMAL SALINE 1000 ML 1,000 ML IV PRN ×4 (00:41→20:10)
[2018-08-04] MEDS: HEPARIN SOD (PORCINE) 5,000 UNIT/ML 1 ML SYRINGE SUBCUT SCH ×3 (05:11→21:04)
[2018-08-04 05:22] LABS: ABSOLUTE EOSINOPHILS # (AUTO) 0.2 10^3/uL (0.0-0.6); ABSOLUTE LYMPHOCYTES (AUTO) 1.3 10^3/uL (0.5-4.7); ABSOLUTE MONOCYTES (AUTO) 0.4 10^3/uL (0.1-1.4); ABSOLUTE NEUT (AUTO) 3.3 10^3/uL (1.7-8.2); BASOPHILS % (AUTO) 0.9 % (0-2); EOSINOPHILS % (AUTO) 4.5 % (0-6); HEMATOCRIT 41.5 % (36.0-47.0); HEMOGLOBIN 13.9 g/dL (12.0-15.5); LYMPHOCYTES % (AUTO) 24.3 % (13-45); MEAN CORPUSCULAR HEMOGLOBIN 27.9 pg (27.0-33.4); MEAN CORPUSCULAR HGB CONC 33.4 g/dL (32.0-36.0); MEAN CORPUSCULAR VOLUME 84 fl (80-97); MONOCYTES % (AUTO) 8.3 % (3-13); PLATELET COUNT 176 10^3/uL (150-450); RED BLOOD COUNT 4.96 10^6/uL (3.72-5.28); TOTAL CELLS COUNTED % (AUTO) 100 %; WHITE BLOOD COUNT 5.4 10^3/uL (4.0-10.5)
[2018-08-04 05:46] LABS: ANION GAP 5 (5-19); BLOOD UREA NITROGEN 12 mg/dL (7-20); CALCIUM 8.9 mg/dL (8.4-10.2); CARBON DIOXIDE 26 mmol/L (22-30); CHLORIDE 110 mmol/L (98-107); GLUCOSE 132 mg/dL (75-110); POTASSIUM 3.8 mmol/L (3.6-5.0); SODIUM 140.5 mmol/L (137-145)
[2018-08-04] MEDS: INSULIN LISPRO 100 UNIT/ML 3 ML VIAL SUBCUT SCH ×4 (08:17→22:18)
[2018-08-04] MEDS: IPRATROPIUM/ALBUTEROL 0.5-2.5 MG/3 ML AMPUL NEB SCH ×3 (08:32→20:42)
[2018-08-04] MEDS: ASPIRIN 81 MG TABLET, CHEWABLE PO SCH (09:16)
[2018-08-04] MEDS: FAMOTIDINE 20 MG TABLET PO SCH ×2 (09:16→21:03)
[2018-08-04] MEDS: LISINOPRIL 10 MG TABLET PO SCH (09:16)
[2018-08-04] MEDS: CEFTRIAXONE SODIUM 1,000 MG in DEXTROSE 5%-WATER 50 ML IV SCH (17:33)
--- NOTE | 2018-08-04 17:47 | PDOC PROGRESS REPORT ---
Subjective Progress Note for:: 08/04/18 Subjective:: She has Klebsiella UTI on IV antibiotic patient with cognitive impairment, probably related to UTI, family not able to take care of family anymore requesting [facility] placement Reason For Visit: AMS, UTI, DEHYDRATION Physical Exam Vital Signs: Temp Pulse Resp BP Pulse Ox 98.0 F 69 18 148/65 H 97 08/04/18 07:25 08/04/18 14:00 08/04/18 13:59 08/04/18 07:25 08/04/18 13:59 Intake & Output 08/03/18 08/04/18 08/05/18 06:59 06:59 06:59 Intake Total 3601 3505 862 Output Total 400 Balance 3201 3505 862 Weight 71.9 kg 73.3 kg General appearance: PRESENT: no acute distress Head exam: PRESENT: atraumatic, normocephalic Eye exam: PRESENT: conjunctiva pink, EOMI, PERRLA Ear exam: PRESENT: normal external ear exam Mouth exam: PRESENT: moist, tongue midline Neck exam: PRESENT: full ROM Respiratory exam: PRESENT: clear to auscultation radha Cardiovascular exam: PRESENT: RRR, +S1, +S2 Vascular exam: PRESENT: normal capillary refill GI/Abdominal exam: PRESENT: normal bowel sounds, soft Rectal exam: PRESENT: deferred Neurological exam: PRESENT: alert, CN II-XII grossly intact. ABSENT: motor sensory deficit Psychiatric exam: PRESENT: appropriate affect, normal mood Skin exam: PRESENT: dry, intact, warm Results Laboratory Results: 08/04/18 04:52 08/04/18 04:52 08/04/18 08/04/18 04:52 04:52 WBC 5.4 RBC 4.96 Hgb 13.9 Hct 41.5 MCV 84 MCH 27.9 MCHC 33.4 RDW 15.0 H Plt Count 176 Seg Neutrophils % 62.0 Lymphocytes % 24.3 Monocytes % 8.3 Eosinophils % 4.5 Basophils % 0.9 Absolute Neutrophils 3.3 Absolute Lymphocytes 1.3 Absolute Monocytes 0.4 Absolute Eosinophils 0.2 Absolute Basophils 0.0 Sodium 140.5 Potassium 3.8 Chloride 110 H Carbon Dioxide 26 Anion Gap 5 BUN 12 Creatinine 0.51 L Est GFR ( Amer) > 60 Est GFR (Non-Af Amer) > 60 Glucose 132 H Calcium 8.9 Impressions: Chest X-Ray 08/01/18 12:01 IMPRESSION: NO ACUTE RADIOGRAPHIC FINDING IN THE CHEST. Head CT 08/01/18 18:25 IMPRESSION: No acute intracranial findings. EVIDENCE OF ACUTE STROKE: NO. Assessment & Plan - Diagnosis (1) Urinary tract infection Qualifiers: Urinary tract infection type: site unspecified Hematuria presence: without hematuria Qualified Code(s): N39.0 - Urinary tract infection, site not specifi ed Is this a current diagnosis for this admission?: Yes (2) Metabolic encephalopathy Is this a current diagnosis for this admission?: Yes (3) UTI due to Klebsiella species Is this a current diagnosis for this admission?: Yes Plan: Continue IV antibiotic (4) COPD (chronic obstructive pulmonary disease) Qualifiers: COPD type: unspecified COPD Qualified Code(s): J44.9 - Chronic obstructive pulmonary disease, unspecified Is this a current diagnosis for this admission?: Yes
[2018-08-04] MEDS: ATORVASTATIN CALCIUM 40 MG TABLET PO SCH (21:03)
[2018-08-05] MEDS: HEPARIN SOD (PORCINE) 5,000 UNIT/ML 1 ML SYRINGE SUBCUT SCH ×3 (05:30→22:55)
[2018-08-05] MEDS: NORMAL SALINE 1000 ML 1,000 ML IV PRN ×2 (06:16→16:45)
[2018-08-05] MEDS: IPRATROPIUM/ALBUTEROL 0.5-2.5 MG/3 ML AMPUL NEB SCH ×3 (07:58→20:35)
[2018-08-05] MEDS: INSULIN LISPRO 100 UNIT/ML 3 ML VIAL SUBCUT SCH ×4 (08:02→22:51)
[2018-08-05] MEDS: FAMOTIDINE 20 MG TABLET PO SCH ×2 (10:35→22:55)
[2018-08-05] MEDS: LISINOPRIL 10 MG TABLET PO SCH (10:35)
[2018-08-05] MEDS: ASPIRIN 81 MG TABLET, CHEWABLE PO SCH (10:35)
[2018-08-05] MEDS: HYDRALAZINE HCL INJ/PF 20 MG/1 ML SDV IV PRN ×2 (15:22→23:38)
[2018-08-05] MEDS: CEFTRIAXONE SODIUM 1,000 MG in DEXTROSE 5%-WATER 50 ML IV SCH (17:06)
--- NOTE | 2018-08-05 19:58 | PDOC PROGRESS REPORT ---
Subjective Progress Note for:: 08/05/18 Subjective:: Patient seen by the bedside, it seems that she has cognitive impairment she does not answer questions appropriately, she tends to give conflicting answers to questions, initially she said she was going home on discharge and then she said she was going to rehab, there is no family member to discuss with, when she was admitted no medications was reconciled on admission suggesting that she is on no medication but when I took care of the long term she was on bunch of medicines Reason For Visit: AMS, UTI, DEHYDRATION Physical Exam Vital Signs: Temp Pulse Resp BP Pulse Ox 97.9 F 91 16 124/42 L 92 08/05/18 15:58 08/05/18 15:58 08/05/18 15:58 08/05/18 15:58 08/05/18 15:58 Intake & Output 08/04/18 08/05/18 08/06/18 06:59 06:59 06:59 Intake Total 3505 4189 1752 Balance 3505 4189 1752 Weight 73.3 kg 73.5 kg General appearance: PRESENT: no acute distress Eye exam: PRESENT: PERRLA Respiratory exam: PRESENT: clear to auscultation radha Cardiovascular exam: PRESENT: +S1, +S2 GI/Abdominal exam: PRESENT: soft Neurological exam: PRESENT: alert Results Laboratory Results: 08/04/18 04:52 08/04/18 04:52 Impressions: Chest X-Ray 08/01/18 12:01 IMPRESSION: NO ACUTE RADIOGRAPHIC FINDING IN THE CHEST. Head CT 08/01/18 18:25 IMPRESSION: No acute intracranial findings. EVIDENCE OF ACUTE STROKE: NO. Assessment & Plan - Diagnosis (1) Urinary tract infection Qualifiers: Urinary tract infection type: site unspecified Hematuria presence: without hematuria Qualified Code(s): N39.0 - Urinary tract infection, site not specified Is this a current diagnosis for this admission?: Yes Plan: Continue IV antibiotic (2) Metabolic encephalopathy Is this a current diagnosis for this admission?: Yes (3) UTI due to Klebsiella species Is this a current diagnosis for this admission?: Yes (4) COPD (chronic obstructive pulmonary disease) Qualifiers: COPD type: unspecified COPD Qualified Code(s): J44.9 - Chronic obstructive pulmonary disease, unspecified Is this a current diagnosis for this admission?: Yes
[2018-08-05] MEDS: ATORVASTATIN CALCIUM 40 MG TABLET PO SCH (22:55)
[2018-08-06] MEDS: NORMAL SALINE 1000 ML 1,000 ML IV PRN (02:03)
[2018-08-06] MEDS: HYDRALAZINE HCL INJ/PF 20 MG/1 ML SDV IV PRN (05:03)
[2018-08-06] MEDS: HEPARIN SOD (PORCINE) 5,000 UNIT/ML 1 ML SYRINGE SUBCUT SCH ×2 (05:03→13:13)
[2018-08-06] MEDS: INSULIN LISPRO 100 UNIT/ML 3 ML VIAL SUBCUT SCH ×3 (07:50→16:50)
[2018-08-06] MEDS: IPRATROPIUM/ALBUTEROL 0.5-2.5 MG/3 ML AMPUL NEB SCH ×2 (07:53→13:39)
[2018-08-06] MEDS: LISINOPRIL 10 MG TABLET PO SCH (09:21)
[2018-08-06] MEDS: ASPIRIN 81 MG TABLET, CHEWABLE PO SCH (09:21)
[2018-08-06] MEDS: FAMOTIDINE 20 MG TABLET PO SCH (09:21)
[2018-08-06] MEDS: CEFTRIAXONE SODIUM 1,000 MG in DEXTROSE 5%-WATER 50 ML IV SCH (17:20)
[2018-08-06 18:25] VITALS: BP 144/60
--- NOTE | 2018-08-06 20:54 | PDOC DISCHARGE SUMMARY ---
General - Admit/Disc Date/PCP Admission Date/Primary Care Provider: 08/01/18 18:25 MARISSA YANG MD Discharge Date: 08/06/18 - Discharge Diagnosis (1) Urinary tract infection Is this a current diagnosis for this admission?: Yes (2) Metabolic encephalopathy Is this a current diagnosis for this admission?: Yes - Additional Information Resuscitation Status: Full Code Discharge Diet: As Tolerated Discharge Activity: Activity As Tolerated Prescriptions: Albuterol Sulfate [Proair Hfa Inhalation Aerosol 8.5 gm Mdi] 1 puff IH Q4 PRN #1 mdi PRN Reason: Aspirin [Aspirin 81 mg Chewable Tablet] 81 mg PO DAILY #90 tab.chew Fluticasone/Umeclidin/Vilanter [Trelegy 100-62.5-25 Mcg Ellipta 14 Dose/Dpi] 1 each IH DAILY #2 inhaler Lisinopril [Prinivil 10 mg Tablet] 10 mg PO DAILY #90 tablet Home Medications: Albuterol Sulfate [Proair Hfa Inhalation Aerosol 8.5 gm Mdi] 1 puff IH Q4 PRN #1 mdi 08/06/18 Aspirin [Aspirin 81 mg Chewable Tablet] 81 mg PO DAILY #90 tab.chew 08/06/18 Fluticasone/Umeclidin/Vilanter [Trelegy 100-62.5-25 Mcg Ellipta 14 Dose/Dpi] 1 each IH DAILY #2 inhaler 08/06/18 Lisinopril [Prinivil 10 mg Tablet] 10 mg PO DAILY #90 tablet 08/06/18 History of Present Illness History of Present Illness: RODNEY GALEANA is a 63 year old female,She was admitted initially by the hospitalist when she presented with acute confusion associated with urinary tract infection. Hospital Course Hospital Course: Patient with baseline cognitive impairment, she was admitted by the hospitalist for the management of UTI and acute confusion. Urine culture grew Klebsiella Pneumonia, she was treated with IV antibiotic, initially it was felt that she requires physical therapy and rehabilitation but ultimately she was discharged home today with family. Physical Exam Vital Signs: Temp Pulse Resp BP Pulse Ox 98.1 F 74 16 144/60 H 95 08/06/18 18:24 08/06/18 18:24 08/06/18 18:24 08/06/18 18:24 08/06/18 18:24 Intake & Output 08/05/18 08/06/18 08/07/18 06:59 06:59 06:59 Intake Total 4189 3054 1324 Output Total 1000 400 Balance 4189 2058 924 Weight 73.5 kg 72.3 kg General appearance: PRESENT: no acute distress Head exam: PRESENT: atraumatic, normocephalic Eye exam: PRESENT: conjunctiva pink, EOMI, PERRLA Ear exam: PRESENT: normal external ear exam Mouth exam: PRESENT: moist, tongue midline Neck exam: PRESENT: full ROM Respiratory exam: PRESENT: clear to auscultation radha Cardiovascular exam: PRESENT: RRR, +S1, +S2 Pulses: PRESENT: normal dorsalis pedis pul, +2 pedal pulses bilateral Vascular exam: PRESENT: normal capillary refill GI/Abdominal exam: PRESENT: normal bowel sounds, soft Rectal exam: PRESENT: deferred Neurological exam: PRESENT: alert Psychiatric exam: PRESENT: appropriate affect, normal mood Skin exam: PRESENT: dry, intact, warm Results Laboratory Results: 08/04/18 04:52 08/04/18 04:52 Impressions: Chest X-Ray 08/01/18 12:01 IMPRESSION: NO ACUTE RADIOGRAPHIC FINDING IN THE CHEST. Head CT 08/01/18 18:25 IMPRESSION: No acute intracranial findings. EVIDENCE OF ACUTE STROKE: NO. Qualifiers - * PATIENT BEING DISCHARGED WITH ANY OF THE FOLLOWING DIAGNOSIS: No VTE patient discharged on overlapping Therapy?: No Reason(s) for not prescribing Overlap Therapy:: Not indicated Stroke Pt being discharged on Anti-thrombolytic therapy?: No Reason(s) for not prescribing Anti-thrombolytic therapy:: Not indicated Stroke Pt being discharged on Anti-coagulation therapy?: No Reason(s) for not prescribing Anti-coagulation therapy:: Not indicated Stroke Pt being discharged on Statins?: No Reason(s) for not prescribing Statins therapy:: Not indicated MN Pt being discharged on Aspirin therapy?: No Reason(s) for not prescribing Aspirin therapy:: Not indicated MN Pt being discharged on Statins?: No Reason(s) for not prescribing Statin therapy:: Not indicated MN Pt discharged ACEI/ARBS?: No Reason(s) for not prescribing ACEI/ARBS:: Not indicated Acute Heart Failure - Is this a Heart Failure Patient?: No 3. Anticoagulant therapy for permanect/persistent/paraoxysmal Afib or Aflutter: N/A
== END 2018-08-06 18:39 | disposition home or self-care (01) ==
LOC: ER 11:45 → EH 18:25 → INTOOBSV 18:25 → 3S 19:48 → 3N 08-05 14:11
PROVIDERS: ADMIT Internal Medicine; ATTEND Internal Medicine
DX: N39.0 Urinary tract infection, site not specified (principal); B96.1 Klebsiella pneumoniae [K. pneumoniae] as the cause of diseases classified elsewhere; G93.41 Metabolic encephalopathy; E86.0 Dehydration; Z86.73 Personal history of transient ischemic attack (TIA), and cerebral infarction without residual deficits; I10 Essential (primary) hypertension; E11.9 Type 2 diabetes mellitus without complications; F32.9 Major depressive disorder, single episode, unspecified; J44.9 Chronic obstructive pulmonary disease, unspecified; Z90.49 Acquired absence of other specified parts of digestive tract; Z90.710 Acquired absence of both cervix and uterus; F17.290 Nicotine dependence, other tobacco product, uncomplicated; Z88.8 Allergy status to other drugs, medicaments and biological substances; Z91.040 Latex allergy status
CPT/HCPCS: 93005; 99285; 36415 ×3; 87040; 87086; 84439; 82962 ×6; 80307 ×4; 84443; 85025 ×3; 87088; 80048 ×2; 80053; 81001; 87186; 84481; 83036; 80061; 71045; 70450; 93010; 94640 ×6; 97530 ×2; 97161; A9270 ×28; J1644 ×6; J0360 ×4; J0696 ×6; J7060 ×5; J7030 ×6; J3490; G0378; J1815; J7620